=== PATIENT | female | born 1945 | race Caucasian/White ===

== ENCOUNTER 2024-10-17 08:15 | Emergency (ER) | payer MEDICARE, SELFPAY ==
--- NOTE | ~2024-10-17 | CT_ITS ---
Non-contrast Head CT History: Head injury Technique: Axial non-contrast imaging of the brain was performed. Dose reduction technique was used on this scan by utilizing automated exposure control and iterative reconstruction technique. The dose -length product (DLP) was 605.33 mGy-cm. Findings: There is no evidence of intracranial hemorrhage, mass lesion, or acute infarct. Brain par enchyma appears normal. The ventricles and subarachnoid spaces are normal in size. The calvarium ap pears normal. The visualized paranasal sinuses and mastoid air cells are clear. Impression: No significant abnormality seen. Reviewed, dictated and finalized at [facility]. EL WRITER Impression: No significant abnormality seen.
--- NOTE | ~2024-10-17 | XR_ITS ---
EXAMINATION: XR femur RT min 2V DATE: 10/17/2024 09:58 INDICATION: Right lower limb injury and pain. TECHNIQUE: 2 views of right femur on 4 radiographs were obtained. COMPARISON: None. FINDINGS: Alignment is normal. No fracture. There is mild right knee osteoarthritis. Right hip joint space is normal. No knee joint effusion. IMPRESSION: 1. Mild right knee osteoarthritis. Reviewed, dictated and finalized at location A. T PATHOLOGIST
--- NOTE | ~2024-10-17 | CT_ITS ---
EXAMINATION: CT cervical spine wo con DATE: 10/17/2024 09:49 INDICATION: Head injury. TECHNIQUE: Computed tomography (CT) of the cervical spine was performed without intravenous contrast. Automated exposure control and iterative reconstruction technique were employed. The dose-length pro duct was 115.96 mGy-cm. COMPARISON: None FINDINGS: There is mild scarring at the lung apices. There is 6 degrees levocurvature of cervical spi ne. Vertebral body heights are normal. There is mildly decreased disc height at C4-C5 and moderately decreased disc height at C5-C6. The following disc levels are specifically discussed: C2-C3: There is no uncovertebral joint osteoarthritis. There is mild bilateral facet joint osteoarthr itis. There is no neural foraminal stenosis. There is no central canal stenosis. C3-C4: There is no uncovertebral joint osteoarthritis. There is severe right and moderate left facet joint osteoarthritis. There is mild right neural foraminal stenosis. There is no central canal stenos is. C4-C5: There is mild bilateral uncovertebral joint osteoarthritis. There is severe right and moderate left facet joint osteoarthritis. There is mild bilateral neural foraminal stenosis. There is no cent ral canal stenosis. C5-C6: There is severe bilateral uncovertebral joint osteoarthritis. There is moderate bilateral face t joint osteoarthritis. There is mild bilateral neural foraminal stenosis. There is moderate central canal stenosis. C6-C7: There is mild bilateral uncovertebral joint osteoarthritis. There is severe bilateral facet martha int osteoarthritis. There is mild right neural foraminal stenosis. There is no central canal stenosis . C7-T1: There is no uncovertebral joint osteoarthritis. There is severe right and moderate left facet joint osteoarthritis. There is mild right neural foraminal stenosis. There is no central canal stenos is. IMPRESSION: 1. No fracture. 2. Moderate cervical spondylosis. Reviewed, dictated and finalized at location A. RACTIVE MEDIA MARKETING DIRECTOR
--- NOTE | ~2024-10-17 | CT_ITS ---
EXAMINATION:CT diagnostic chest wo con DATE: 10/17/2024 09:49 INDICATION: Right anterior lateral chest wall pain. Fall. TECHNIQUE: Computed tomography (CT) of the chest was performed without intravenous contrast. Automate d exposure control and iterative reconstruction technique were employed. The dose-length product (DLP ) was 139.86 mGy-cm. COMPARISON: None. FINDINGS: There is mild scarring at the lung apices. There is mild scarring in paraspinal right lower lobe. There is a cluster of tree-in-bud opacities in right lower lobe, likely inflammation/infection . There is mild bronchiectasis bilaterally with a lower lung predominance. There is mild atelectasis bilaterally. Calcified left lung nodules are consistent with old granulomatous disease. No pleural ef fusion. The heart size is normal. No pericardial effusion. There is a 7 mm cyst in the liver. There i s a 3 mm stone in left kidney. There are peripelvic cysts in left kidney. 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 Thoracic dextroscoliosis is noted. There is severe thora cic spondylosis. There is a hemangioma in the sternum. There is a fracture of right fourth rib. IMPRESSION: 1. Right fourth rib fracture. 2. Cluster of tree-in-bud opacities in right lung lower lobe, likely inflammation/infection. Reviewed, dictated and finalized at location A. ECTOR TUBES IMPRESSION: 1. Right fourth rib fracture. 2. Cluster of tree-in-bud opacities in right lung lower lobe, likely inflammati on/infection.
[2024-10-17 08:22] VITALS: BP 155/89; PULSE 68; RESP 14; TEMP 36.8; O2SAT 96
--- NOTE | 2024-10-17 09:35 | ED_ITS ---
HPI - Fall General Chief Complaint: Fall Stated Complaint: fell a few days ago pain to head and right side Time Seen by Provider: 10/17/24 09:04 Source: patient Mode of arrival: ambulatory Limitations: no limitations History of Present Illness HPI Narrative: Patient is a 78-year-old female who presents the ED with report of a fall. Patient reports she tripped and fell a few days ago while working in the yard. She did hit her head on the concrete. Denied LOC. Denied prodromal symptoms prior to the fall. She also complains of pain to her right anterior chest, right breast, right lower ribs. Denies abdominal pain. Denies shortness of breath. Also reports having pain and bruising to her right lateral thigh. Is able to ambulate. Is on any blood thinners. Denies dizziness, lightheadedness, vision changes, focal numbness or weakness. Related Data Home Medications Medication Instructions Recorded Confirmed atorvastatin 10 mg tablet 10 mg PO DAILY 09/11/24 pantoprazole 40 mg tablet,delayed 40 mg PO QAM 09/11/24 release Allergies Allergy/AdvReac Type Severity Reaction Status Date / Time No Known Allergies Allergy Verified 10/17/24 08:16 Review of Systems Review of Systems: All systems reviewed & are unremarkable except as noted in HPI. All systems reviewed & are unremarkable except as noted in HPI and below PMFSH Social History Social History Smoking status: Never smoker Alcohol intake: never Substance use: never Substance use type: does not use Do You Feel Safe in your Home?: Yes Lack of Transportation: No Lack of Food: Never True Current Housing: I Do Not Have Housing Concerned About Future Housing: No Difficulty Paying Gas/Electric Bills: No Difficulty Paying for Meds: No Currently Unemployed: No Education: High School Diploma/GED Difficulty w/ Childcare or Family Care: Decline to Answer Exam Narrative: GENERAL: Elderly but well appearing, well-nourished, non-toxic, in no acute distress. HEAD: Normocephalic. Small contusion to R frontal region. RESPIRATORY: Airway patent, respirations nonlabored. Clear to auscultation bilaterally, no rales, rhonchi, wheezing. CARDIOVASCULAR: Regular rate and rhythm without murmurs, rubs, or gallops. ABDOMINAL: Soft, no significant tenderness throughout abdomen. Nondistended. Normoactive BS. MUSCULOSKELETAL: Moves all extremities. No gross deformities. No tenderness throughout cervical, thoracic, lumbar midline spine. Tenderness to palpation over right anterior lateral chest wall/mid to lower rib cage. No splinting. Ecchymosis present throughout lateral distal R thigh with focal tenderness to palpation. No significant tenderness over right hip joint. SKIN: Warm, dry, normal color. NEURO: A&O X3. Speech clear. Cranial nerves II-XII grossly intact. Steady gait. No ataxic movements. PSYCHIATRIC: Appropriate mood and affect. Normal interaction. Course Vital Signs Vital signs: Vital Signs Temperature 98.2 F 10/17/24 08:22 Pulse Rate 68 10/17/24 08:22 Respiratory Rate 14 10/17/24 08:22 Blood Pressure 155/89 H 10/17/24 08:22 Pulse Oximetry 96 10/17/24 08:22 Temperature 98.2 F 10/17/24 08:22 Pulse Rate 70 10/17/24 10:44 Respiratory Rate 16 10/17/24 10:44 Blood Pressure 99/77 L 10/17/24 10:44 Pulse Oximetry 98 10/17/24 10:44 MDM - Fall MDM Narrative Medical decision making narrative: Patient presented to ED a few days status post ground level mechanical fall. Vital signs stable upon arrival. Patient neurologically intact. Head injury, no LOC. Imaging of brain and cervical spine negative for traumatic findings. X- ray of femur negative. Shows osteoarthritis of knee. CT of chest was obtained and showing single right-sided rib fracture. Consistent with exam and injury. No pneumothorax. Nonspecific inflammation in right lower lung zone. Patient denies any respiratory complaints, denies shortness of breath, cough, fevers. Oxygen is stable on room air. Feel she is safe for discharge home with pain control. Given instructions on incentive spirometer use. Will discharge with lidocaine patches, tramadol for home use. Advised to have close follow-up with PCP for further evaluation. Given strict return precautions. She agrees with plan. Discharged in stable condition. Medical Records Attestation: I reviewed the patient's medical records. Imaging Data Attestation: I personally reviewed and interpreted this imaging study as follows: Radiologist's impression: ITS Impressions Head CT 10/17/24 09:49 Impression: No significant abnormality seen. Cervical Spine CT 10/17/24 09:57 IMPRESSION: 1. No fracture. 2. Moderate cervical spondylosis. Chest CT 10/17/24 10:00 IMPRESSION: 1. Right fourth rib fracture. 2. Cluster of tree-in-bud opacities in right lung lower lobe, likely inflammation/infection. Femur X-Ray 10/17/24 10:04 IMPRESSION: 1. Mild right knee osteoarthritis. Discharge Plan Discharge Clinical Impression: Fall from ground level Closed head injury Qualifiers: Encounter type: initial encounter Qualified Code(s): S09.90XA - Unspecified injury of head, initial encounter Right rib fracture Qualifiers: Encounter type: initial encounter Rib fracture type: single rib Fracture type: closed Qualified Code(s): S22.31XA - Fracture of one rib, right side, initial encounter for closed fracture Patient Disposition: Home, Self-Care Condition: Stable Instructions: Antibiotic Form, Rib Fracture (ED), Head Injury (ED), Contusion in Adults (ED) Additional Instructions: Utilize incentive spirometer several times throughout the day to encourage deep breathing. Continue Tylenol as needed for pain. Utilize Tramadol as needed for more severe pain. You may use ice/heat, lidocaine patches to area of pain. Follow-up with your primary care doctor for further evaluation. Return to the ED if you experience worsening or severe pain, recurrent injury, numbness, shortness of breath, difficulty breathing, severe dizziness, unable to keep down food or drink, or any other symptoms of concern. Prescriptions: New lidocaine 5 % adhesive patch,medicated 1 patch topical DAILY Qty: 15 0RF Rx Instructions: leave on most painful area for up to 12 hrs tramadol 50 mg tablet 25 mg PO Q6H PRN (Reason: pain) Qty: 10 0RF No Action atorvastatin 10 mg tablet 10 mg PO DAILY pantoprazole 40 mg tablet,delayed release (DR/EC) 40 mg PO QAM Follow-up/Referrals: Zachariah,MD Toni [Primary Care Provider] - Time of Disposition: 10:53
[2024-10-17 10:44] VITALS: BP 99/77; PULSE 70; RESP 16; O2SAT 98
== END 2024-10-17 11:03 | disposition home or self-care (01) ==
PROVIDERS: Emergency Provider Physician Assistant; PCP Internal Medicine
DX: S09.90XA Unspecified injury of head, initial encounter (principal); S22.31XA Fracture of one rib, right side, initial encounter for closed fracture; W19.XXXA Unspecified fall, initial encounter
CPT/HCPCS: 70450; 71250; 72125; 73552; 99284

== ENCOUNTER 2025-02-24 14:48 | Emergency (ER) | payer MEDICARE, SELFPAY ==
--- NOTE | ~2025-02-24 | XR_ITS ---
XR hand RT min 3V Ordering provider: Fanta Morales History: . fall . Comparison: None. FINDINGS: BONES: No acute fracture or dislocation. JOINT SPACES: Narrowing of the proximal and distal interphalangeal joints. SOFT TISSUES: Normal. IMPRESSION: No acute osseous abnormality right hand. Reviewed, dictated and finalized at location A.
--- NOTE | ~2025-02-24 | XR_ITS ---
XR hand LT min 3V Ordering provider: Fanta Morales PA-C History: . fall . Comparison: None. FINDINGS: BONES: No acute fracture or dislocation. JOINT SPACES: Narrowing of the proximal and distal interphalangeal joints. Narrowing of the scaphotra pezial and first carpometacarpal joints. SOFT TISSUES: Unremarkable. IMPRESSION: No acute osseous abnormality left hand. Polyarticular osteoarthritic changes. Reviewed, dictated and finalized at location A.
--- NOTE | ~2025-02-24 | XR_ITS ---
XR hip BI 2V w AP pelvis Ordering provider: Fanta Morales History: . fall . Comparison: October 17, 2024 FINDINGS: BONES: No acute fracture or dislocation. HIP JOINT SPACES: Normal. SACROILIAC JOINT SPACES/LUMBAR SPINE: The sacroiliac joint spaces are normal. Mild degenerative loya es of the visualized lower lumbar spine. PUBIC SYMPHYSIS: Normal. SOFT TISSUES: Normal. IMPRESSION: No acute osseous abnormality of the bilateral hips and pelvis. Reviewed, dictated and finalized at location A.
--- NOTE | ~2025-02-24 | XR_ITS ---
XR ankle LT min 3V Ordering provider: Fanta Morales PA-C History: . fall . Comparison: None. FINDINGS: BONES: No acute fracture or dislocation. JOINT SPACES: The ankle mortise is normal. SOFT TISSUES: Normal. Calcaneus spur. IMPRESSION: No acute osseous abnormality left ankle. Reviewed, dictated and finalized at location A.
--- NOTE | ~2025-02-24 | CT_ITS ---
CT diagnostic chest wo con Ordering provider: Fanta Morales PA-C History: 79 years Female .. left rib pain . Comparison: None. Technique: CT chest without IV contrast. Radiation reduction technique utilized.The dose-length produ ct was 125.1 mGy-cm. FINDINGS: VISUALIZED THORACIC INLET: Normal. MEDIASTINUM: Aorta/coronary arteries: Mild atheromatous disease. Heart/other: The heart is not enlarged. Trace of pericardial effusion. Lymph nodes: No mediastinal or hilar adenopathy. Precarinal lymph nodes are seen within the right ruchi sures 1 cm. LUNGS: No pulmonary nodules or masses. No infiltrates or effusions. No pneumothorax. Groundglass appe arance in the lung bases which may indicate atelectasis versus pneumonia. Atelectatic changes also se en in the lingula. VISUALIZED UPPER ABDOMEN: Left hydronephrotic changes Otherwise, the visualized upper abdomen is norm al. MUSCULOSKELETAL: Soft tissues: The superficial soft tissues are normal. Bones: Age appropriate degenerative changes of the spine. Sclerotic areas seen bilaterally in the fourth and fifth ribs and the right 6th rib Most likely due t o old fractures. Clinical correlation advised. Vertebroplasty seen in L2. Cystic changes in the manub rium. Sclerotic area in the lower sternum. IMPRESSION: 1. No acute cardiopulmonary pathology. 2. Groundglass appearance in the left and right lung bases which may indicate atelectasis versus pne umonia. 3. Precarinal lymph nodes with the largest measures 1 cm. 4. Left hydronephrotic changes. 5. Trace pericardial effusion. 6. Multiple sclerotic change in the ribs bilaterally most likely due to old fractures. Reviewed, dictated and finalized at location A. IMPRESSION: 1. No acute cardiopulmonary pathology. 2. Groundglass appearance in the left and right lung bases which may indicate atelectasis versus pneumonia. 3. Precarinal lymph nodes with the largest measures 1 cm. 4. Left hydronephrotic changes. 5. Trace pericardial effusion. 6. Multiple sclerotic change in the ribs bilaterally most likely due to old fr actures.
--- NOTE | ~2025-02-24 | XR_ITS ---
XR knee RT 3V Ordering provider: Fanta Morales History: . fall . Comparison: None. FINDINGS: BONES: No acute fracture or dislocation. JOINT SPACES: Normal. SOFT TISSUES: Normal. IMPRESSION: No acute osseous abnormality right knee. Reviewed, dictated and finalized at location A.
--- NOTE | ~2025-02-24 | XR_ITS ---
XR ribs LT 2V w CXR 2V Ordering provider: Fanta Morales History: . fall . Comparison: None. FINDINGS: BONES: Fracture of the left sixth rib. Degenerative changes of the spine. Vertebroplasty seen in the lumbar area. Dextroscoliosis. MEDIASTINUM: The cardiac silhouette is not enlarged. LUNGS: No infiltrates, effusions or pneumothorax. Emphysematous changes. OTHER: No free air under the diaphragm. IMPRESSION: 1. Fracture of the left sixth rib. 2. No acute cardiopulmonary findings. Reviewed, dictated and finalized at location A.
--- NOTE | ~2025-02-24 | CT_ITS ---
EXAMINATION: 1. CT facial & cervical spine wo DATE: 02/24/2025 15:52 INDICATION: Fall TECHNIQUE: 1. Computed tomography (CT) of the maxillofacial region and of the cervical spine were performed with out intravenous contrast. Sagittal and coronal reconstructions of both regions were obtained. Automat ed exposure control and iterative reconstruction technique were employed. The dose-length product was 115.96 mGy-cm. COMPARISON: Cervical spine CT dated 10/17/2024 FINDINGS: Maxillofacial CT: Soft tissue swelling with mild fat stranding overlying the left anterior mandible likely representing a post traumatic contusion. No maxillofacial fractures. Specifically the nasal bones, zygomatic arch es, mandible and lee of the orbits and paranasal sinuses are all intact. Nasal septum is midline wi th no fracture. The temporomandibular joints in normal alignment with mild to moderate left-sided and moderate right-sided osteoarthritis. Bone island at the right mandibular condyle. Orbits are normal. Mild mucosal thickening the right maxillary sinus. Mastoid air cells and middle ear cavities are marisol ar. Cervical spine CT: Unchanged mild cervicothoracic levocurvature. Sagittal alignment is normal. Vertebral body heights ar e normal. Mild disc height loss and mild uncovertebral osteoarthritis at C4-C5 and moderate disc heig ht loss and severe uncovertebral osteoarthritis at C5-C6. Right paracentral disc protrusion at C5-C6 resulting in moderate central canal stenosis at this level. No other central canal stenosis. Mild to moderate left-sided and moderate to severe right-sided cervical facet osteoarthritis. There is mild n eural from stenosis at a few levels in the left and right sides of the cervical spine. See prior repo rt for level by level analysis. Cervical soft tissues are unremarkable. Mild emphysema with mild biap ical pleural-parenchymal scarring. IMPRESSION: 1. No maxillofacial fractures. 2. Moderate cervical spondylosis. No acute osseous abnormality. Reviewed, dictated and finalized at location A.
--- NOTE | ~2025-02-24 | CT_ITS ---
History: Fall PROCEDURE: CT head without contrast. COMPARISON: 10/17/2024 TECHNIQUE: Axial imaging of the head performed from the skull base to the vertex without IV contrast. Sagittal a nd coronal reformations obtained. DLP: 605 mGy-cm FINDINGS: The ventricles are normal in size, shape and position. There is no mass, mass effect or midline shift. There is no abnormal extra-axial fluid collection or intracranial hemorrhage. Visualized paranasal sinuses are clear. The mastoid air cells are well aerated. No acute displaced fractures within the overlying cranium. Impression: No acute intracranial hemorrhage or suspicious mass effect. Reviewed, dictated and finalized at location A. Impression: No acute intracranial hemorrhage or suspicious mass effect.
[2025-02-24 14:52] VITALS: BP 170/73; PULSE 94; RESP 16; TEMP 36.4; O2SAT 99
--- NOTE | 2025-02-24 15:19 | ED_ITS ---
HPI - Fall General Chief Complaint: Fall <Fanta Morales PA-C - Last Filed: 02/24/25 15:21> Stated Complaint: Fall-hit left side, diff taking deep breaths <Fanta Morales PA-C - Last Filed: 02/24/25 15:21> Time Seen by Provider: 02/24/25 17:41 <Fanta Morales PA-C - Last Filed: 02/24/25 15:21> Focused HPI: 79-year-old female presents emergency department after ground level fall that occurred this morning. Patient states she was wearing her house slippers when she tripped on the lip of her sidewalk walking to her neighbor's house and fell. She landed on the left side of her face, left ribs, hips and hands. She is reporting pain and bruising to the left side of her chin, pain to the left ribs that is worse with deep inspiration and movement, pain to bilateral dorsum of hands with ecchymosis, pain to bilateral posterior hips, pain to the left knee and ankle. She has presenting with small abrasion to the palm of her left hand, last Tdap unknown. Bleeding is controlled. She is not anticoagulated. GENERAL: Well-appearing, well-nourished, and in no acute distress. HEAD: Normocephalic, atraumatic. ENT: Ecchymosis to the left chin with tenderness, no intraoral lacerations or abrasions, no dental injury BACK: No midline thoracolumbar spinous tenderness, crepitus, step-offs or deformities CHEST: Clear to auscultation. ?No respiratory distress. Tenderness to the left anterior lateral chest wall beneath the left breast with no overlying skin changes EXT: Ecchymosis and tenderness to the dorsum of bilateral hands with full range of motion of hand, radial, median and ulnar nerves intact, radial pulse 2 +, sensation intact throughout. No tenderness remainder of wrist or remainder upper extremities. Tenderness to bilateral posterior hips overlying the piriformis with no overlying skin changes or deformity, full range of motion of hips. Mild tenderness to the left hip and left ankle with no obvious deformity. Extremities are pink, warm and dry. HEART: Regular rate and rhythm.? NEURO: ?Alert and oriented x3. Patient screened in triage and initial orders placed.? ?Additional care and disposition to be based upon?diagnostic testing and treatment. <Fanta Morales PA-C - Last Filed: 02/24/25 15:21> History of Present Illness HPI Narrative: agree with above <Teagan Childress MD - Last Filed: 02/24/25 21:21> Related Data Home Medications: Home Medications ?Medication ?Instructions ?Recorded ?Confirmed ?Last Taken ?Type atorvastatin 10 mg tablet 10 mg PO DAILY 09/11/24 Unknown History pantoprazole 40 mg tablet,delayed 40 mg PO QAM 09/11/24 Unknown History release <Fanta Morales PA-C - Last Filed: 02/24/25 15:21> Allergies/Adverse Reactions: Allergies Allergy/AdvReac Type Severity Reaction Status Date / Time No Known Allergies Allergy Verified 02/24/25 14:49 <Fanta Morales PA-C - Last Filed: 02/24/25 15:21> Review of Systems Review of Systems: per hpi <Teagan Childress MD - Last Filed: 02/24/25 21:21> [facility] Social History Social History: Social History Smoking status: Never smoker Alcohol intake: never Substance use: never Substance use type: does not use Do You Feel Safe in your Home?: Yes Lack of Transportation: No Lack of Food: Never True Current Housing: I Do Not Have Housing Concerned About Future Housing: No Difficulty Paying Gas/Electric Bills: No Difficulty Paying for Meds: No Currently Unemployed: No Education: High School Diploma/GED Difficulty w/ Childcare or Family Care: Decline to Answer <Fanta Morales PA-C - Last Filed: 02/24/25 15:21> Exam Narrative: EXAMINATION OF ORGAN SYSTEMS/BODY AREAS: Constitutional: Vital signs per nursing GENERAL:[No acute distress, non-toxic appearing.] HEAD: Bruise left chin EYES: EOMI, conjunctiva normal ENT: Hearing grossly intact LUNGS: Nonlabored breathing. No chest wall tenderness HEART: [Regular rate and rhythm] ABD: [Soft], [nontender to palpation] EXT: Normal range of motion; bruising bilateral knees, left hand, with some tenderness SKIN: Bruising and abrasions to knees, hands NEURO: [Alert and oriented x 3. No gross focal sensory or strength deficits.] Speaking with clear speech, ambulating normal steady gait PSYCH: Normal affect <Teagan Childress MD - Last Filed: 02/24/25 21:21> Course Vital Signs Vital signs: Vital Signs Temperature 97.6 F 02/24/25 14:52 Pulse Rate 94 02/24/25 14:52 Respiratory Rate 16 02/24/25 14:52 Blood Pressure 170/73 H 02/24/25 14:52 Pulse Oximetry 99 02/24/25 14:52 Temperature 97.6 F 02/24/25 14:52 Pulse Rate 86 02/24/25 18:11 Respiratory Rate 16 02/24/25 18:11 Blood Pressure 150/70 H 02/24/25 18:11 Pulse Oximetry 97 02/24/25 18:11 <Fanta Morales PA-C - Last Filed: 02/24/25 15:21> Vital Signs Temperature 97.6 F 02/24/25 14:52 Pulse Rate 94 02/24/25 14:52 Respiratory Rate 16 02/24/25 14:52 Blood Pressure 170/73 H 02/24/25 14:52 Pulse Oximetry 99 02/24/25 14:52 Temperature 97.6 F 02/24/25 14:52 Pulse Rate 86 02/24/25 18:11 Respiratory Rate 16 02/24/25 18:11 Blood Pressure 150/70 H 02/24/25 18:11 Pulse Oximetry 97 02/24/25 18:11 <Teagan Childress MD - Last Filed: 02/24/25 21:21> MDM - Fall MDM Narrative Medical decision making narrative: Patient presents here after mechanical fall after she tripped, she does have bruising everywhere especially to her, telling me, with small abrasions, none of which appear to be he pain or requiring sutures, everything is cleaned off well, tetanus is updated, Toradol given for pain, imaging obtained to rule out fractures. No obvious acute fracture seen but given her pain to her left hand I did advise getting and using thumb spica/wrist splint when she leaves here following up with a doctor for repeat x-rays if she continues to have pain. Patient agreeable to this plan. Stable for discharge with return precautions <Teagan Childress MD - Last Filed: 02/24/25 21:21> Discharge Plan Discharge Clinical Impression: Fall, Bruising <Fanta Morales PA-C - Last Filed: 02/24/25 15:21> Patient Disposition: Home <Fanta Morales PA-C - Last Filed: 02/24/25 15:21> Condition: Stable <Fanta Morales PA-C - Last Filed: 02/24/25 15:21> Instructions: Contusion in Adults (ED), Abrasion (ED) <Fanta Morales PA-C - Last Filed: 02/24/25 15:21> Additional Instructions: Please follow up with your doctor; you can always return for any further issues. <Fanta Morales PA-C - Last Filed: 02/24/25 15:21> Patient Language: Urdu <Fanta Morales PA-C - Last Filed: 02/24/25 15:21> Prescriptions: New oxycodone 5 mg tablet 5 mg PO Q8H PRN (Reason: pain) Qty: 7 0RF No Action atorvastatin 10 mg tablet 10 mg PO DAILY pantoprazole 40 mg tablet,delayed release (DR/EC) 40 mg PO QAM lidocaine 5 % adhesive patch,medicated 1 patch topical DAILY Qty: 15 0RF Rx Instructions: leave on most painful area for up to 12 hrs tramadol 50 mg tablet 25 mg PO Q6H PRN (Reason: pain) Qty: 10 0RF <Fanta Morales PA-C - Last Filed: 02/24/25 15:21> Follow-up/Referrals: Zachariah,MD Toni [Primary Care Provider] - <Fanta Morales PA-C - Last Filed: 02/24/25 15:21>
--- OUTSIDE RECORDS SUMMARY | 2025-02-24 15:57 | XMS_ITS | CONTINUITY OF CARE DOCUMENT ---
Author Name adalgisa jaiiker Address Unknown Organization [facility] Address [address] [place] [address] Phone [phone] Care Team Providers Care Tire Debeader Name Role Phone Lawrence Venegas MD Unavailable [phone] LORI JACKSON MD Unavailable LORI JACKSON MD Unavailable PROBLEMS Condition Status Date Provider Notes Chest pain active Jeanne Rodriguez INSURANCE PROVIDERS Payer name Policy type / Coverage type [place] red libertarian ID [facility] MEDICARE ADVANTAGE (PPO) Other [id number] HISTORY OF PROCEDURES Procedure Date Procedure Name Provider Procedure Notes S tatus Mobile Cardiac Telem etry - Tech Lawrence Venegas MD completed Mobile Cardiac Telem etry - Prof Lawrence Venegas MD completed Cardiolite, 2 units Lawrence Venegas MD completed SPECT Images Lawrence Venegas MD comple cathy Stress EKG Lawrence Venegas MD complete d
--- OUTSIDE RECORDS SUMMARY | 2025-02-24 15:57 | XMS_ITS | Clinical Summary ---
Author Organization [facility] Address [address] [place] [id number] Care Team Providers Care Chronometer Adjuster Name Role Phone Unavailable Primary Care Provider Unavailabl e Social History Tobacco Use Types Packs/Day Years Used Date Smoking Tobacco: Never Assessed Comments Unknown Sex and Gender Information Value Date Recorded Sex Assigned at Not on file Legal Sex Female 7:31 PM CDT Gender Identity Not on file Sexual Orientation Not on file Last Filed Vital Signs Vital Sign Reading Time Taken Comments Blood Pressure 126/80 07/07/2014 8:56 AM CDT Pulse - - Temperature - - Respiratory Rate - - Oxygen Saturation - - Inhaled Oxygen Concentration - - Weight 64.9 kg (143 lb) 07/07/2014 8:56 AM CDT Height 162.6 cm (5' 4 ) 03/19/2013 9:59 AM CDT Body Mass Index 24.55 03/19/2013 9:59 AM CDT Plan of Treatment Health Maintenance Due Date Last Done Comments Hepatitis C 1964 DTaP, Tdap and Td Vaccines ( 1 - Tdap) 1965 Zoster Vaccines (1 of 2) 1996 Dexa Scan (General) 2011 Pneumococcal Vaccine: 50+ Ye ars (1 of 1 - PCV) 2011 RSV Immunization or 60+ Years (1 - 1-dose 75+ series) 2021 COVID-19 Vaccine ( - 2023-2 5 season) 2024 Meningococcal B Vaccine Aged Out No l onger eligible based on patient's age to complete this topic Meningococcal Vaccine Aged Out No leanne dejah eligible based on patient's age to complete this topic RSV Immunizations Under 20 Months Aged Out No longer eligible based on patient's age to complete this topic
--- OUTSIDE RECORDS SUMMARY | 2025-02-24 15:57 | XMS_ITS | Continuity of Care Document ---
Author Organization [facility] Address [address] [place] [address] [address] [place] [address] Phone Care Team Providers Care Sql Manager Name Role Phone Aj Guzman Unavailable Unavailable Procedures Procedure Date Office/outpatient Visit, Est Eye Exam Established Pt Eye Exam & Treatment Refraction Office/outpatient Visit, New Advance Directives Directive Yes / No Effective Date File Name No Information Encounters Encounter Description Practice Location Reason(s) For Visit Diagnoses Date Provider Providers Copied on Encounter Office/outpat ient Visit, Est [facility], [address] [place] [address] [address], [place], [place], [id number], [place] tel:[phone] [facility] No Information [address], [place], [place], [facility], . tel:[phone] [facility], [id number] [place] [address] [address], [place], [place], [id number], [place] tel:[phone] [facility] No Information [address] [place] , [address], [place], [place], [facility], [place]. tel:[phone] [facility], [address], [place], [place], [id number], tel:[phone] [facility] No Information [address] [facility] , [address], [place], [address], [place]. tel:[phone] Office/outpat ient Visit, [facility], [address], [place], [place], [id number], [place] tel:[phone] [facility] No Information [address] [facility] , [address], [place], [address], [place]. tel:[phone] Family History Family Member Type Diagnosis Age At Onset No Information Payers Payer name Insurance type Covered alliance party ID Authoriza tion(s) No Information Social History Type Description Quantity Date Captured Comments Sex Female Smoking Status No Information Chief Complaint And Reason For Visit No Information Reason For Referral Reason For Referral No Information History Of Present Illness Encounter Date Complaint History Of Prese nt Illness No Information Functional Status Date Functional Assessmen t No Information Instructions Date Instruction Additional Infor mation No Information Assessments Type Assessment Date No Information Patient Care Teams Name Effective Dates (start - stop) Status Members No Information
--- OUTSIDE RECORDS SUMMARY | 2025-02-24 15:57 | XMS_ITS | Data Portability ---
Author Organization [facility] Address [address] [place] [address] Care Team Providers Care Drier Name Role Phone LORI SONI Primary Care Provider [phone] RY KHALIL Neurosurgeon Assessment Encounter Date Assessment Date Assessment LastModified by Organization Details LastModified Time 08/19/2024 08/19/2024 EKG shows a normal sinus rhythm I do not appreciate any acute changes. We will obtain blood work she will push fluids orthostatic vital signs reviewed she will follow up in a couple of weeks if symptomatology changes she will let us know. We will monitor blood pressure [email or web address] Not available 08/21/2024 23:52:09 09/02/2024 09/02/2024 Used to be positional now she states that she can not be sure Holter monitor carotid duplex echocardiogram MRI brain flu shot healthy lifestyle care instructions follow up after testing 81 mg aspirin daily [email or web address] Not available 09/14/2024 11:56:47 09/10/2024 09/10/2024 all questions answered immunizations and screenings ordered where appropriate and patient agreeable all questions answered follow up with her regular appointment time [email or web address] Not available 09/10/2024 22:10:55 12/09/2024 12/09/2024 physical therapy low back pain GERD pantoprazole dyslipidemia atorvastatin she refuses to follow up with echo and Holter she will follow up in 3 months [email or web address] Not available 12/09/2024 21:24:23 Plan of Treatment Reminders Order Date Submit Date Provider Last Modified By Organization Details Last Modified Time Details Appointments ANY 15 2024 02:00P Keyona Soni MD Not available Not available Not available Lab CBC w/ auto diff 2023 024 BR[facility]ON [facility], [address], [place], [address], 08/20/2024 06:18:09 CMP, serum or plasma 2023 024 KRUNAL [facility], [address], [place], [address], 08/20/2024 06:18:04 magnesium , serum or plasma 2023 024 BR[facility]ON [facility], [address], [place], [address], 08/20/2024 06:18:06 urinalysi s, complete 2023 024 BRIGHTON [facility], [address], [place], [address], 08/20/2024 06:18:08 Referral physical therapist referral 2024 025 [facility], [address], [place], [address], 12/11/2024 20:27:47 Procedures colonosco py procedure (PROC) 2023 024 [facility], [address], [address], [place], [address], 01/12/2025 15:11:10 Surgeries None recorded. Imaging MAMMO, screening , bilateral 2023 024 [facility] (Imaging), [address], [place], [address], 01/13/2025 11:43:23 holter monitor - 1wk holter 2023 024 [facility], [address], [address], [place], [address], 01/28/2025 16:21:02 US, duplex, carotid artery 2023 024 [facility] (One Call Scheduling), [address] [place], [address], 09/09/2024 15:36:59 US, echocardi ogram 2023 024 [facility] (Cardiology & Emg), [address], [place], [address], 12/17/2024 11:25:46 MRI, brain, w/o contrast 2023 024 [facility] (One Call Scheduling), [address] [place], [address], 09/09/2024 10:27:56 electroca rdiogram 2023 In-Office Order, Internal Use Only DO Not Attach Compendium DO Not Attach Compendium, Do Not Delete/merge, [id number] 08/19/2024 12:36:35 Medication Orders Prolia 60 mg/mL subcutane ous syringe 2023 [email or web address] [id number], [address], [place], [place], [id number], 09/16/2024 10:21:33 Patient TargetsNo targets recorded. Patient Instructions Encounter Date Encounter Id Patient Instructions Last Modified By Organization Details Last Modified Time 09/02/2024 [id number] A healthy lifestyle: care instructions [email or web address] Not available 09/02/2024 15:32:49 09/10/2024 [id number] Medicare Well[employer] s Preventive Checklist [email or web address] Not available 09/10/2024 15:31:33 Reason for Referral Physical Therapist Referral for Low back pain Referring Physician: Lori Soni, Internal Medicine, Encounter Date: 12/09/2024 Results Created Date Observation Date Name Description Value Unit Range Abnormal Flag Note LastModifiedBy Organization Detail LastModifiedTime 08/19/2008/20/2024 COMP. METAB OLIC PANEL (14) glucose 83 mg/dL 70-99 Not Available [facility] ([facility]) [address] [place], [address], 08/20/2024 06:18:03 08/19/20 24 08/20/2024 COMP. METAB OLIC PANEL (14) BUN 15 mg/dL 8-27 Not Available [facility] ([facility]) [address] [place], [address], 08/20/2024 06:18:03 08/19/2008/20/2024 COMP. METAB OLIC PANEL (14) creatinine 0.76 mg/dL 0.57-1 .00 Not Available [facility] ([facility]) [address] [place], [address], 08/20/2024 06:18:03 08/19/20 24 08/20/2024 COMP. METAB OLIC PANEL (14) eGFR 81 mL/mi n/1.7 3 >59 Not Available [facility] ([facility]) [address] [place], [address], 08/20/2024 06:18:03 08/19/20 24 08/20/2024 COMP. METAB OLIC PANEL (14) BUN/creatini ne ratio 20 12-28 Not Available [facility] ([facility]) [address] [place], [address], 08/20/2024 06:18:03 08/19/20 24 08/20/2024 COMP. METAB OLIC PANEL (14) sodium 142 mmol/ L 134-14 4 Not Available [facility] ([facility]) [address] [place], [address], 08/20/2024 06:18:03 08/19/20 24 08/20/2024 COMP. METAB OLIC PANEL (14) potassium 4.9 mmol/ L 3.5-5. 2 Not Available [facility] ([facility]) [address], [place], [address], 08/20/2024 06:18:03 08/19/2008/20/2024 COMP. METAB OLIC PANEL (14) chloride 104 mmol/ L 96-106 Not Available [facility] ([facility]) [address] [place], [address], 08/20/2024 06:18:03 08/19/2008/20/2024 COMP. METAB OLIC PANEL (14) carbon dioxide, total 25 mmol/ L 20-29 Not Available [facility] ([facility] [address] [place], [address], 08/20/2024 06:18:03 08/19/20 24 08/20/2024 COMP. METAB OLIC PANEL (14) calcium 9.2 mg/dL 8.7-10 .3 Not Available [facility] ([facility]) [address] [facility], [place], [address], 08/20/2024 06:18:03 08/19/2008/20/2024 COMP. METAB OLIC PANEL (14) protein, total 6.4 g/dL 6.0-8. 5 Not Available [facility] ([facility]) [address] [place], [address], 08/20/2024 06:18:03 08/19/2008/20/2024 COMP. METAB OLIC PANEL (14) albumin 4.2 g/dL 3.8-4. 8 Not Available [facility] ([facility]) [address] [place], [address], 08/20/2024 06:18:03 08/19/2008/20/2024 COMP. METAB OLIC PANEL (14) globulin, total 2.2 g/dL 1.5-4. 5 Not Available [facility] ([place] [facility]) [address] [facility], [place], [address], 08/20/2024 06:18:03 08/19/2008/20/2024 COMP. METAB OLIC PANEL (14) bilirubin, total 0.4 mg/dL 0.0-1. 2 Not Available [facility] ([facility]) [address] [place], [address], 08/20/2024 06:18:03 08/19/2008/20/2024 COMP. METAB OLIC PANEL (14) alkaline phosphatase 56 IU/L 44-121 Not Available [facility]) [address] [place], [address], 08/20/2024 06:18:03 08/19/2008/20/2024 COMP. METAB OLIC PANEL (14) AST (SGOT) 21 IU/L 0-40 Not Available [facility] ([facility]) [address] [place], [address], 08/20/2024 06:18:03 08/19/2008/20/2024 COMP. METAB OLIC PANEL (14) ALT (SGPT) 11 IU/L 0-32 Not Available [facility] ([facility]) [address] [place], [address], 08/20/2024 06:18:03 08/19/2008/20/2024 MICRO SCOPI C EXAMI NATIO N WBC None seen /hpf 0-5 Not Available [facility] ([facility]) [address] [place], [address], 08/20/2024 06:18:06 08/19/2008/20/2024 MICRO SCOPI C EXAMI NATIO N RBC None seen /hpf 0-2 Not Available [facility] ([facility]) [address] [facility], [place], [address], 08/20/2024 06:18:06 08/19/2008/20/2024 MICRO SCOPI C EXAMI NATIO N epithelial cells (non renal) None seen /hpf 0-10 Not Available [facility] ([facility]) [address], [place], [address], 08/20/2024 06:18:06 08/19/2008/20/2024 MICRO SCOPI C EXAMI NATIO N casts None seen /lpf nonese en Not Available [facility] ([facility]) [address], [place], [address], 08/20/2024 06:18:06 08/19/2008/20/2024 MICRO SCOPI C EXAMI NATIO N bacteria None seen nonese en/few Not Available [facility] ([facility]) [address] [facility], [place], [address], 08/20/2024 06:18:06 08/19/2008/20/2024 MAGNE SIUM magnesium 2.2 mg/dL 1.6-2. 3 Not Available [facility] ([facility]) [address] [place], [address], 08/20/2024 06:18:06 08/19/2008/20/2024 URINA LYSIS , COMPL ETE specific gravity 1.010 1.005- 1.030 Not Available [facility] ([facility]) [address] [facility], [place], [address], 08/20/2024 06:18:08 08/19/2008/20/2024 URINA LYSIS , COMPL ETE pH 7.5 5.0-7. 5 Not Available [facility] ([facility]) [address] [place], [address], 08/20/2024 06:18:08 08/19/2008/20/2024 URINA LYSIS , COMPL ETE urine-color YELLOW yellow Not Available [facility] ([facility]) [address] [place], [address], 08/20/2024 06:18:08 08/19/2008/20/2024 URINA LYSIS , COMPL ETE appearance CLEAR clear Not Available [facility] ([facility]) [address], [place], [address], 08/20/2024 06:18:08 08/19/2008/20/2024 URINA LYSIS , COMPL ETE WBC esterase NEGATI VE negati ve Not Available [facility] ([facility]) [address] [facility], [place], [address], 08/20/2024 06:18:08 08/19/2008/20/2024 URINA LYSIS , COMPL ETE protein NEGATI VE negati ve/tra ce Not Available [facility] ([facility]) [address] [facility], [place], [address], 08/20/2024 06:18:08 08/19/2008/20/2024 URINA LYSIS , COMPL ETE glucose NEGATI VE negati ve Not Available [facility] ([facility]) [address] [facility], [place], [address], 08/20/2024 06:18:08 08/19/2008/20/2024 URINA LYSIS , COMPL ETE ketones NEGATI VE negati ve Not Available [facility] ([facility]) [address] [facility], [place], [address], 08/20/2024 06:18:08 08/19/2008/20/2024 URINA LYSIS , COMPL ETE occult blood NEGATI VE negati ve Not Available [facility] ([facility]) [address] [facility], [place], [address], 08/20/2024 06:18:08 08/19/2008/20/2024 URINA LYSIS , COMPL ETE bilirubin NEGATI VE negati ve Not Available [facility] ([facility]) [address], [place], [address], 08/20/2024 06:18:08 08/19/2008/20/2024 URINA LYSIS , COMPL ETE urobilinogen ,semi-qn 0.2 mg/dL 0.2-1. 0 Not Available [facility] ([facility]) [address], [place], [address], 08/20/2024 06:18:08 08/19/2008/20/2024 URINA LYSIS , COMPL ETE nitrite, urine NEGATI VE negati ve Not Available [facility] ([facility]) [address], [place], [address], 08/20/2024 06:18:08 08/19/2008/20/2024 URINA LYSIS , COMPL ETE microscopic examination COMMEN T Micro scopi c follo ws if indic ated. Not Available [facility] ([facility]) [address], [place], [address], 08/20/2024 06:18:08 08/19/2008/20/2024 URINA LYSIS , COMPL ETE microscopic examination SEE BELOW: Micro scopi c was indic ated and was perfo rmed. Not Available [facility] ([facility]) [address], [place], [address], 08/20/2024 06:18:08 08/19/2008/20/2024 CBC WITH DIFFE RENTI AL/PL ATELE T WBC 5.4 x10e3 /uL 3.4-10 .8 Not Available [facility] ([facility]) [address] [facility], [place], [address], 08/20/2024 06:18:09 08/19/2008/20/2024 CBC WITH DIFFE RENTI AL/PL ATELE T RBC 4.17 x10e6 /uL 3.77-5 .28 Not Available [facility] ([facility]) [address] [facility], [place], [address], 08/20/2024 06:18:09 08/19/2008/20/2024 CBC WITH DIFFE RENTI AL/PL ATELE T hemoglobin 13.7 g/dL 11.1-1 5.9 Not Available [facility] ([facility]) [address], [place], [address], 08/20/2024 06:18:09 08/19/2008/20/2024 CBC WITH DIFFE RENTI AL/PL ATELE T hematocrit 41.5 % 34.0-4 6.6 Not Available [facility] ([facility]) [address] [facility], [place], [address], 08/20/2024 06:18:09 08/19/2008/20/2024 CBC WITH DIFFE RENTI AL/PL ATELE T MCV 100 fL 79-97 above high normal Not Available [facility] ([facility]) [address] [facility], [place], [address], 08/20/2024 06:18:09 08/19/2008/20/2024 CBC WITH DIFFE RENTI AL/PL ATELE T MCH 32.9 pg 26.6-3 3.0 Not Available [facility] ([facility]) [address] [facility], [place], [address], 08/20/2024 06:18:09 08/19/2008/20/2024 CBC WITH DIFFE RENTI AL/PL ATELE T MCHC 33.0 g/dL 31.5-3 5.7 Not Available [facility] ([facility]) [address], [place], [address], 08/20/2024 06:18:09 08/19/2008/20/2024 CBC WITH DIFFE RENTI AL/PL ATELE T RDW 11.9 % 11.7-1 5.4 Not Available [facility] ([facility]) [address] [facility], [place], [address], 08/20/2024 06:18:09 08/19/2008/20/2024 CBC WITH DIFFE RENTI AL/PL ATELE T platelets 278 x10e3 /uL 150-45 0 Not Available [facility] ([facility]) [address] [facility], [place], [address], 08/20/2024 06:18:09 08/19/20 24 08/20/2024 CBC WITH DIFFE RENTI AL/PL ATELE T neutrophils 62 % notest ab. Not Available [facility] ([facility]) [address] [facility], [place], [address], 08/20/2024 06:18:09 08/19/20 24 08/20/2024 CBC WITH DIFFE RENTI AL/PL ATELE T lymphs 26 % notest ab. Not Available [facility] ([facility]) [address], [place], [address], 08/20/2024 06:18:09 08/19/20 24 08/20/2024 CBC WITH DIFFE RENTI AL/PL ATELE T monocytes 10 % notest ab. Not Available [facility] ([facility]) [address] [facility], [place], [address], 08/20/2024 06:18:09 08/19/20 24 08/20/2024 CBC WITH DIFFE RENTI AL/PL ATELE T eos 2 % notest ab. Not Available [facility] ([facility]) [address], [place], [address], 08/20/2024 06:18:09 08/19/20 24 08/20/2024 CBC WITH DIFFE RENTI AL/PL ATELE T basos 0 % notest ab. Not Available [facility] ([facility]) [address] [facility], [place], [address], 08/20/2024 06:18:09 08/19/20 24 08/20/2024 CBC WITH DIFFE RENTI AL/PL ATELE T neutrophils (absolute) 3.3 x10e3 /uL 1.4-7. 0 Not Available [facility] ([facility]) [address] [facility], [place], [address], 08/20/2024 06:18:09 08/19/20 24 08/20/2024 CBC WITH DIFFE RENTI AL/PL ATELE T lymphs (absolute) 1.4 x10e3 /uL 0.7-3. 1 Not Available [facility] ([facility]) [address] [place], [address], 08/20/2024 06:18:09 08/19/20 24 08/20/2024 CBC WITH DIFFE RENTI AL/PL ATELE T monocytes(ab solute) 0.6 x10e3 /uL 0.1-0. 9 Not Available [facility] ([facility]) [address] [place], [address], 08/20/2024 06:18:09 08/19/20 24 08/20/2024 CBC WITH DIFFE RENTI AL/PL ATELE T eos (absolute) 0.1 x10e3 /uL 0.0-0. 4 Not Available [facility] ([facility]) [address] [place], [address], 08/20/2024 06:18:09 08/19/20 24 08/20/2024 CBC WITH DIFFE RENTI AL/PL ATELE T baso (absolute) 0.0 x10e3 /uL 0.0-0. 2 Not Available [facility] ([facility]) [address] [place], [address], 08/20/2024 06:18:09 08/19/20 24 08/20/2024 CBC WITH DIFFE RENTI AL/PL ATELE T immature granulocytes 0 % notest ab. Not Available [facility] ([facility]) [address] [place], [address], 08/20/2024 06:18:09 08/19/20 24 08/20/2024 CBC WITH DIFFE RENTI AL/PL ATELE T immature zohra (abs) 0.0 x10e3 /uL 0.0-0. 1 Not Available [facility] ([facility]) [address], [place], [address], 08/20/2024 06:18:09 08/19/20 24 08/19/2024 elect rocar diogr am No observ ation record ed. KRUNAL In-Office Order Internal Use Only DO Not Attach Compendium DO Not Attach Compendium, Do Not Delete/merge, [id number] 08/19/2024 11:43:56 08/19/2008/19/2024 elect rocar diogr am No observ ation record ed. BARCODE In-Office Order Internal Use Only DO Not Attach Compendium DO Not Attach Compendium, Do Not Delete/merge, [id number] 08/19/2024 13:02:33 09/09/20 24 09/09/2024 MRI, brain , w/o contr ast No observ ation record ed. [facility] [address] [place], [address], 09/10/2024 14:50:35 09/09/20 24 09/09/2024 US, duple x, carot id arter y No observ ation record ed. [facility] [address] [place], [address], 09/10/2024 14:51:36 Result Notes None recorded. Problems Name Problem SNOMED Code Status Onset Date Resolution Date Notes Provider Name and Address Organization Details Recorded Time Rhinitis 45399681 Active 2023 SANJAY Childs [place] - [facility] 15:53:13 Low back pain 957702662 Active 2023 SANJAY Childs, [facility] 15:53:13 Hyperlipidemia 79045754 Active 2023 Colleen Estrada [place] null, [place] - [facility] 4 15:18:01 Osteopenia 892543781 Active 2023 Colleen Estrada [place] null, [place] - [facility] 4 15:18:01 Anxiety 02035905 Active 2023 Lori Soni MD Attn: Bhavik bautista,[address] [facility], [place], [address], [place] - [facility] 21:46:11 Gastroesophage al reflux disease without esophagitis 390002753 Active 2023 Lori Soni MD Attn: Bhavik bautista,[address], [place], [address], [place] - [facility] 21:46:43 Problem Notes None recorded. Procedures Surgical History Date Name Laterality Status Provider Name and Address Organization Details Recorded Time Back Surgery completed SANJAY Castro - [facility] 01/31/2024 15:29:08 Tubal Ligation completed Monica Roy [place] - [facility] 01/31/2024 15:29:20 Total hysterectomy completed Monica Roy [place] - [facility] 01/31/2024 15:29:31 Imaging Results Imaging Date Name Status LastModified by Organization Details LastModified Time 08/19/2024 electrocardiogram completed BRIGHTON In-Offi ce Order Internal Use Only DO Not Attach Compendium DO Not Attach Compendium, Do Not Delete/merge, [id number] 08/19/2024 11:43:56 08/19/2024 electrocardiogram completed BARCODE In-Offi ce Order Internal Use Only DO Not Attach Compendium DO Not Attach Compendium, Do Not Delete/merge, [id number] 08/19/2024 13:02:33 09/09/2024 MRI, brain, w/o contrast completed [facility] [address] [place], [address], 09/10/2024 14:50:35 09/09/2024 US, duplex, carotid artery completed [facility] [address] [place], [address], 09/10/2024 14:51:36 Procedure Notes None recorded. Medical Equipment None Reported. Allergies No known drug allergies Medications Name Sig Start Date Stop Date Status Note LastModified by Organization Details LastModified Time latanopro st 0.005 % eye drops INSTILL 1 DROP IN BOTH EYES EVERY DAY AT BEDTIME active Not Available Not Available No t Available atorvasta tin 10 mg tablet TAKE 1 TABLET BY MOUTH DAILY 2024 active Not Available Not Available Not Avai lable azithromy antoni 250 mg tablet 01/30 completed Not Available Not Available Not Available tizanidin e 4 mg tablet TAKE 1 TABLET BY MOUTH TWICE DAILY 01/30 completed Not Available Not Available Not Available hydrocodo ne 5 mg-acetam inophen 325 mg tablet TAKE 1 TABLET BY MOUTH EVERY 8 HOURS FOR 7 DAYS DIRECTED 01/30 completed Not Available Not Available Not Available meloxicam 15 mg tablet TAKE 1 TABLET BY MOUTH EVERY DAY 01/30 completed Not Available Not Available Not Available prednison e 20 mg tablet TAKE 2 TABLETS BY MOUTH EVERY DAY FOR 5 DAYS. START TAKING ON 09/14/2004/28 completed not taking, end of course Not Available Not Available Not Available tramadol 50 mg tablet TAKE 1/2 TABLET BY MOUTH EVERY 6 HOURS NEEDED FOR PAIN active Not Available Not Available No t Available lorazepam 0.5 mg tablet TAKE 1 TABLET BY MOUTH TWICE DAILY 01/30 completed Not Available Not Available Not Available pantopraz ole 40 mg tablet,de layed release Take 1 tablet every day by oral route. active Not Available Not Available No t Available fluoxetin e 10 mg capsule TAKE 1 CAPSULE BY MOUTH EVERY DAY 01/30 completed Not Available Not Available Not Available methylpre dnisolone 4 mg tablets in a dose pack FOLLOW PACKAGE DIRECTIO NS 06/03 completed Not Available Not Available Not Available naproxen 500 mg tablet TAKE 1 TABLET BY MOUTH EVERY 12 HOURS NEEDED 01/30 completed Not Available Not Available Not Available diazepam 5 mg tablet TAKE 1 TABLET BY MOUTH TWICE DAILY 06/03 completed not taking Not Available Not Available Not Available cyclobenz aprine 5 mg tablet TAKE 1 TABLET BY MOUTH EVERY 8 HOURS 06/03 completed not taking Not Available Not Available Not Available Premarin 0.625 mg/gram vaginal cream INSERT / APPLICAT ORFUL VAGINALL Y EVERY DAY 04/28 completed pt reports no longer taking Not Available Not Available Not Available Prolia 60 mg/mL subcutane ous syringe INJECT 60MG SUBCUTAN EOUSLY EVERY 6 MONTHS 2024 active Not Available Not Available Not Avai lable aspirin 81 mg capsule Take 1 capsule every day by oral route. active Not Available Not Available No t Available Vitals Date Recorded Body height Heart rate Oxygen saturation Oxygen saturation in Arterial blood by Pulse oximetry Respiratory rate Systolic blood pressure Diastolic blood pressure Systolic blood pressure Diastolic blood pressure Systolic blood pressure Diastolic blood pressure Provider Name and Address Organization Details Last Updated DateTime 4 160.02 cm 74 /min 94 % 94 % 20 /min 138 mm[Hg] 82 mm[Hg] 146 mm[Hg] 86 mm[Hg] 158 mm[Hg] 82 mm[Hg] Vickie Montano MA [facility] 4 09:29:18 Date Recorded Body height Provider Name an d Address Organization Details Last Updated DateTime 09/02/2024 160.02 cm Diane Hernandez MA [facility] 4 14:18:04 Date Recorded Body mass index (BMI) Body weight Heart rate Oxygen saturation Oxygen saturation in Arterial blood by Pulse oximetry Systolic blood pressure Diastolic blood pressure Provider Name and Address Organization Details Last Updated DateTime 4 23.4 kg/m2 99996.9 1 g 68 /min 98 % 98 % 122 mm[Hg] 78 mm[Hg] Ai Barron [facility] 4 14:28:23 Date Recorded Body height Body mass index (BMI) Body weight Heart rate Oxygen saturation Oxygen saturation in Arterial blood by Pulse oximetry Systolic blood pressure Diastolic blood pressure Provider Name and Address Organization Details Last Updated DateTime 4 160.02 cm 23.4 kg/m2 31373.1 9 g 80 /min 94 % 94 % 130 mm[Hg] 80 mm[Hg] Ai Barron [facility] 4 14:48:16 Date Recorded Pain severity - 0-10 verbal numeric rating [Score] - Reported Provider Name and Address Organization Details Last Updated DateTime 09/10/2024 0 Xiomara Moran [facility] 09/10/2024 14:54:41 Date Recorded Body height Body mass index (BMI) Body weight Heart rate Oxygen saturation Oxygen saturation in Arterial blood by Pulse oximetry Systolic blood pressure Diastolic blood pressure Provider Name and Address Organization Details Last Updated DateTime 5 160.02 cm 22.8 kg/m2 01044.3 4 g 78 /min 97 % 97 % 128 mm[Hg] 78 mm[Hg] Ai Barron [place] - [facility] 5 15:14:39 Social History Question Answer Notes LastModified by Organizat ion Details LastModified Time Tobacco Smoking Status Never Smoker Monica SANJAY Roy null, [place] - [facility] 01/31/2024 15:28:36 Do You Have An Advance Directive? No Information n ot available 09/02/2024 What Is Your Level Of Alcohol Consumption? None Information not available 01/31/2024 Are You Blind Or Do You Have Difficulty Seeing? No Information n ot available 09/02/2024 What Is Your Level Of Caffeine Consumption? None Information not available 01/31/2024 In The 14 Days Before Symptom Onset, Have You Had Close Contact With A Laboratory-confirm ed COVID-19 While That Case Was Ill? No Information n ot available 09/02/2024 In The 14 Days Before Symptom Onset, Have You Had Close Contact With A Person Who Is Under Investigation For COVID-19 While That Person Was Ill? No Information not available 09/02/2024 Have You Been To An Area Known To Be High Risk For COVID-19? No Information not available 09/02/2024 Are You Currently Employed? No Information not available 09/02/2024 Are You Deaf Or Do You Have Serious Difficulty Hearing? No Information not available 09/02/2024 What Type Of Diet Are You Following? REGULAR Information n ot available 09/02/2024 Are There Any Guns Present In Your Home? No Information not available 09/02/2024 In The Past 7 Days, How Many Days Did You Exercise? 0 Information not available 09/10/2024 In The Past 7 Days, How Much Pain Have You Spearfish? Some Information not available 09/10/2024 In General, Would You Say You Health Is: Good Information not available 09/10/2024 How Would You Describe The Condition Of Your Mouth And Teeth- Including False Teeth Or Dentures? Good Information n ot available 09/10/2024 Each Night, How Many Hours Of Sleep Do You Get? 8 Information no t available 09/10/2024 Has Anyone Ever Told You That You Snore? No Information not available 09/10/2024 In The Past 7 Days, How Often Have You Spearfish Sleepy In The Daytime? Sometimes Information not available 09/10/2024 # Alcohol Drinks Per Week 0 Information not available 09/10/2024 What Was The Date Of Your Most Recent Tobacco Screening? 12/09/2024 Information not available 12/09/2024 What Is Your Relationship Status? Single Information not available 09/02/2024 Do You Use Your Seat Belt Or Car Seat Routinely? Yes Information not available 06/03/2024 Do You Have Smoke And Carbon Monoxide Detectors In Your Home? Yes Information not available 06/03/2024 Do You Feel Stressed (tense, Restless, Nervous, Or Anxious, Or Unable To Sleep At Night)? [id number] Information not available 09/10/2024 Do You Use Any Illicit Or Recreational Drugs? No Information not available 01/31/2024 Do You Use Sunscreen Routinely? Yes Information not available 09/02/2024 Has Tobacco Cessation Counseling Been Provided? No Information not available 06/03/2024 Do You Or Have You Ever Used Any Other Forms Of Tobacco Or Nicotine? No Information not available 06/03/2024 Sex: Female Functional Status Question Answer Note LastModified by Organizat ion Details LastModified Time Are you able to care for yourself? Yes Information not available 09/02/2024 What is your exercise level? None active lifestyle Information not available 09/10/2024 Mental Status None recorded. Family History Relationship Description Onset Age of this Age Resolved Age Notes LastModified by Organization Details LastModified Time Sister Diabetes mellitus [email or web address] available 2023 15:27:42 Sister Migraine [email or web address] Not available 01/31/2024 15:31:18 Mother Diabetes mellitus [email or web address] available 2023 15:27:42 Mother Heart disease [email or web address] available 2023 15:27:55 Mother Migraine [email or web address] Not available 01/31/2024 15:31:18 Father Heart disease [email or web address] Not available 2023 15:27:55 Father Hypertensive disorder [email or web address] Not available 2023 15:28:12 Brother Heart disease [email or web address] Not available 2023 15:30:45 Notes:son had spindle cell m alignancy of the pelvis with metastasis Medical History Condition Response Coronary Artery Disease N Other N High Blood Pressure N Atrial Fibrillation N Thyroid Problems N Kidney or Bladder Problems N Blood Clots N COPD N Depression Y GI Problems N Have you had a mammogram in the last yea r? N Skin Problems N Anemia N Heart Attack (IA) N Anxiety Disorder Y Diabetes N Muscle, Joint, or Bone Problems Y Seizures/Epilepsy N Have you had a colonoscopy in the last 1 0 years? N Acid Reflux (GERD) Y Cancer N Stroke N Asthma N Allergies Y Have you had a PSA blood test in the las t year? N High Cholesterol Y Hepatitis N Liver Disease N Headaches Y Heart Failure N Osteoporosis Y Gynecological History Statement/Question Response If Post Menopausal, Age at Menopause Obstetrics History GPAL:G 1 P 1 0 0 0 Type Value Full Term 1 Total 1 Immunizations Vaccine Type Date Status Note Provider Nam e and Address Organization Details Recorded Time Influenza, high-dose, quadrivalent, PF 0 completed ELISA Sim[place], [place] - [facility] 04/28/2024 14:48:53 Influenza, high-dose, quadrivalent, PF 2 completed ELISA [place] [facility] 04/28/2024 14:48:53 Influenza, high-dose, quadrivalent, PF 1 ELISA [place] [facility] 04/28/2024 14:48:53 Influenza, high-dose, quadrivalent, PF 2 completed ELISA [place] [facility] 04/28/2024 14:48:53 Influenza, high-dose, quadrivalent, PF 3 completed Michelle Dooley RMA [place] [facility] 04/28/2024 14:48:53 COVID-19, mRNA, LNP-S, PF, 100 mcg/0.5mL dose or 50 mcg/0.25mL dose 1 completed Michelle Do[place] [facility] 04/28/2024 14:48:53 COVID-19, mRNA, LNP-S, PF, 100 mcg/0.5mL dose or 50 mcg/0.25mL dose 1 completed Michelle Dooley [place] [facility] 04/28/2024 14:48:53 COVID-19, mRNA, LNP-S, PF, 30 mcg/0.3 mL dose 1 completed Michelle Do[place] [facility] 04/28/2024 14:48:53 Pneumococcal conjugate PCV20, polysaccharide [id number] conjugate, adjuvant, PF 2 completed Michelle Do[place] [facility] 04/28/2024 14:48:53 COVID-19, mRNA, LNP-S, bivalent, PF, 30 mcg/0.3 mL dose 2 completed Michelle Do[place] [facility] 04/28/2024 14:48:53 COVID-19, mRNA, LNP-S, bivalent, PF, 30 mcg/0.3 mL dose 2 completed Michelle Do[place] [facility] 04/28/2024 14:48:53 Pneumococcal conjugate PCV 13 9 completed Michelle Do[place] [facility] 04/28/2024 14:48:53 Influenza, high-dose, trivalent, PF 7 completed Michelle Do[place] [facility] 04/28/2024 14:48:53 Influenza, high-dose, trivalent, PF 3 completed Michelle Do[place] [facility] 04/28/2024 14:48:53 Influenza, high-dose, trivalent, PF 8 completed Michelle Dooley RMA null, [place] - [facility] 04/28/2024 14:48:53 Influenza, high-dose, trivalent, PF 7 completed Michelle Dooley [place] [facility] 04/28/2024 14:48:53 Influenza, split virus, quadrivalent, PF 5 completed Michelle Dooley [place] [facility] 04/28/2024 14:48:53 Influenza, high-dose, trivalent, PF 4 completed Lori Soni MD Attn: [address]ing[address] [place], [address], [facility] 09/14/2024 11:56:03 Past Encounters Encounter ID Performer Location Encounter Start Date Encounter Closed Date Diagnosis/Indication Diagnosis SNOMED-CT Code Diagnosis ICD10 Code Diagnosis Note [id number] MD Ary [facility] (Adult Med) [address] [place] [id number] 01/31/2024 15:02:44 01/31/2024 16:50:21 Backache 988304131 M54.9 Hyperlipidemia 20846019 E78.5 [id number] Lori Soni MD [address] [place] [address] 04/28/2024 14:14:31 04/28/2024 15:54:42 Low back pain 572003230 M54.50 Rhinitis 74704920 J00 [id number] MD Ary Hudson (Adult Med) [address] [place] [id number] 0 06/03/2024 14:00:09 06/03/2024 15:35:44 Osteopenia 430043743 M85.80 Hyperlipidemia 28957515 E78.5 Anxiety 01359083 F41.9 Gastroesop hageal reflux disease without esophagitis 915939767 K21.9 [id number] MD [facility]ry [facility] (Adult Med) [address] [place] [address] [id number] 0 08/19/2024 09:15:11 08/19/2024 11:01:53 Dizziness 248293815 R42 Gastroesop hageal reflux disease without esophagitis 142047604 K21.9 [id number] [facility] [address] [place] [id number] 0 09/02/2024 14:05:54 09/02/2024 15:19:12 Body mass index 20-24 - normal 409231019 Z68.23 Dizziness 448577490 R42 Administra tion of influenza vaccine 17359016 Z23 [id number] Lori Soni MD [facility] (Adult Med) [address] [place] [id number] 0 09/10/2024 14:28:44 09/10/2024 15:32:58 Adult health examination 544528594 Z00.00 Health Risk Assessment collected and reviewed Screening mammography 24 451675 Z12.31 Screening for malignant neoplasm of colon 922941445 Z12.11 [id number] [facility] [address] [place] [id number] 0 09/16/2024 09:29:39 09/16/2024 10:19:36 Osteopenia 640412534 M85.80 [id number] [facility] [address] [place] [id number] 12/09/2024 14:40:46 12/09/2024 17:02:55 Body mass index 20-24 - normal 640555876 Z68.23 Low back pain 668819024 M54.50 Gastroesop hageal reflux disease without esophagitis 125194863 K21.9 Hyperlipidemia 44434332 E78.5 Osteopenia 844706065 M85 .80 Anxiety 97504045 F41.9 Health Concerns Section Related Observation LastModified by Organization Detai ls LastModified Time None Recorded Concern Status LastModified by Organization Details LastModified Time None Recorded Advance Directives Directive N: Payers Encounter Date Sequence Insurance Name Policy Number Policy Marquez Covered Member ID Marquez Member ID Guarantor Name 08/19/2024 1 [facility] (MEDICARE REPLACEMENT/ ADVANTAGE - HMO) [id number] Analia Marques [id number] Analia Marques 09/02/2024 1 [facility] (MEDICARE REPLACEMENT/ ADVANTAGE - HMO) [id number] Analia Marques [id number] Analia Marques 09/10/2024 1 [facility] (MEDICARE REPLACEMENT/ ADVANTAGE - HMO) [id number] Analia Marques [id number] Analia Marques 09/16/2024 1 [facility] (MEDICARE REPLACEMENT/ ADVANTAGE - HMO) [id number] Analia Marques [id number] Analia Marques 12/09/2024 1 [facility] (MEDICARE REPLACEMENT/ ADVANTAGE - HMO) [id number] Analia Marques [id number] Analia Marques Notes Date Note Type Note Provider Name and Address Organization Details Recorded Time 08/19/2024 text/html she had tried dizziness mostly when she stands up no chest pain or shortness for breath. Her GERD has been doing okay. Dyslipidemia she is taking her atorvastatin and trying to watch her diet Lori Soni MD Attn: Accounting[address] [place], [address], [facility] 08/21/2024 23:52:27 09/02/2024 text/html still having fara e dizziness but it can not be very specific about it. Lori Soni MD Attn: Accounting[address] [place], [address], [facility] 09/14/2024 11:57:07 09/10/2024 text/html MAW 2Reported bypatient.Diet and Nutrition:healthy diet Fracture Risk:no sudden unexplained fractures;history of fractures Concentration and Memory:no decreased concentrating ability; no memory lapses or loss; does not forget words Speech/Motor difficulties:no speech difficulties; no difficulty expressing formulated concepts; no difficulty with fine manipulative tasks; no difficulty writing/copying; no slowed reaction time; does not knock things over when trying to pick them up Hearing:no loss of hearing Vision:worse both distance and near(glasses, glaucoma) Activities of Daily Living:able to bathe with limited or no assistance; able to contol urination and bowels; able to dress with limited or no assistance; able to feed self with limited or no assistance; able to get out of chair or bed with limited or no assistance; able to groom with limited or no assistance; able to toilet with limited or no assistance Instrumental Activities of Daily Living:able to do house work with limited or no assistance; able to grocery shop with limited or no assistance; able to manage medications with limited or no assistance; able to manage money with limited or no assistance; able to prepare meals with limited or no assistance; able to use the phone with limited or no assistance Falls Risk Assessment:no frequent falls while walking; no fall since last visit; fall(s) in the past year 1;dizziness/vertigo Home Safety:no unsafe alessandro hazzards; no unsafe stairs; working smoke/CO detectors; practicing 'safer sex'; no fire arms; good lighting in the home;does not have hand bars in the bathroom/shower Lori Soni MD Attn: Accounting[address] [place], [address], [facility] [place] 09/10/2024 22:11:13 12/09/2024 text/html follow up on medical problems she is still struggling with a little bit of back pain GERD with nausea vomiting diet could be better with regards to intake of fat osteopenia with history compression fracture as she has refused to take any medication for her bones her anxiety has been high Lori Soni MD Attn: Accounting[address] [place], [address], [facility] 12/09/2024 21:25:23 OBGyn Episode No OBEpisode recorded.
[2025-02-24] MEDS: TETANUS,DIPHTHERIA,AC PERTUSSIS ADULT (0.5 ML) BOOSTRIX IM (17:46)
--- OUTSIDE RECORDS SUMMARY | 2025-02-24 17:54 | XMS_ITS | CONTINUITY OF CARE DOCUMENT ---
Author Name adalgisa jaiiker Address Unknown Organization [facility] Address [address] [place] [address] Phone [phone] Care Team Providers Care Business Analytics Faculty Member Name Role Phone Lawrence Venegas MD Unavailable [phone] LORI JACKSON MD Unavailable LORI JACKSON MD Unavailable [phone] PROBLEMS Condition Status Date Provider Notes Chest pain active Jeanne Rodriguez INSURANCE PROVIDERS Payer name Policy type / Coverage type [place] red constitution party ID [facility] MEDICARE ADVANTAGE (PPO) Other [id number] HISTORY OF PROCEDURES Procedure Date Procedure Name Provider Procedure Notes S tatus Mobile Cardiac Telem etry - Tech Lawrence Venegas MD completed Mobile Cardiac Telem etry - Prof Lawrence Venegas MD completed Cardiolite, 2 units Lawrence Venegas MD completed SPECT Images Lawrence Venegas MD comple cathy Stress EKG Lawrence Venegas MD complete d
--- OUTSIDE RECORDS SUMMARY | 2025-02-24 17:54 | XMS_ITS | Clinical Summary ---
Author Organization [facility] Address [address] [place] [address] Care Team Providers Care Cream Dipper Name Role Phone Unavailable Primary Care Provider [...]
--- OUTSIDE RECORDS SUMMARY | 2025-02-24 17:55 | XMS_ITS | Data Portability ---
Author Organization [place] - [facility] [employer], Main Office Address [address] [place] [address] Care Team Providers Care Music Instructor Name Role Phone LORI SONI Primary Care Provider [phone] LORI SONI Referring Provider [phone] Assessment Encounter Date Assessment Date Assessment LastModified by Organization Details LastModified Time 04/02/2023 04/02/2023 Continue current therapy follow-up months [email or web address] Not available 04/03/2023 08:47:18 08/13/2023 08/13/2023 See her back in a month does not want any counseling diagnosis discussed cpm [email or web address] Not available 08/13/2023 21:38:52 09/12/2023 09/12/2023 X-ray lumbar spi ne consider chiropractic referral tizanidine 4 mg b.i.d. p.r.n. [email or web address] Not available 09/15/2023 11:28:22 09/17/2023 09/17/2023 I will get her referred to a different chiropractor again her x-rays have been discussed she will stop the lorazepam to give her file him 5 mg b.i.d. as an anti spasmodic the cyclobenzaprine did not seem to help she will see me in a couple weeks [email or web address] Not available 09/17/2023 20:44:08 11/28/2023 11/28/2023 GERD discussed anxiety discussed arthritis discussed her chronic back pain and compression fracture discussed follow-up 4 months [email or web address] Not available 12/08/2023 15:44:11 Plan of Treatment Reminders Order Date Submit Date Provider Last Modified By Organization Details Last Modified Time Details Appointments None recorded. Lab None recorded. Referral chiropracto r referral - no auth required 2022 023 [email or web address] Jameel Craft, [address], [place], [address], Ph [phone] 17:47:02 Procedures None recorded. Surgeries None recorded. Imaging XR, lumbar spine 2022 023 [email or web address] [facility] ([facility]), [address] [place], [address], 3 14:30:27 Medication Orders tizanidine 4 mg tablet 2022 023 [email or web address] [id number], [address], [place], [place], [id number], 15:33:40 Patient TargetsNo targets recorded. Patient InstructionsNo instructions recorded. Reason for Referral Chiropractor Referral for Lo w back pain no auth required Referring Physician: Lori Soni, Internal Medicine, Encounter Date: 09/12/2023 Results Created Date Observation Date Name Description Value Unit Range Abnormal Flag Note LastModifiedBy Organization Detail LastModifiedTime 04/02/20 23 04/02/2023 COMPR EHENS KIM METAB OLIC PANEL sodium 140 mmol/ L 137-14 5 Not Available [facility] (Lab) [address] [place], [address], 04/02/2023 13:30:03 04/02/20 23 04/02/2023 COMPR EHENS KIM METAB OLIC PANEL potassium 4.2 mmol/ L 3.5-5. 1 Not Available [facility] (Lab) [address] [place], [address], 04/02/2023 13:30:03 04/02/20 23 04/02/2023 COMPR EHENS KIM METAB OLIC PANEL chloride 102 mmol/ L 98-107 Not Available [facility] (Lab) [address] [place], [address], 04/02/2023 13:30:03 04/02/20 23 04/02/2023 COMPR EHENS KIM METAB OLIC PANEL carbon dioxide 28 mmol/ L 22-30 Not Available [facility] (Lab) [address] [place], [address], 04/02/2023 13:30:03 04/02/20 23 04/02/2023 COMPR EHENS KIM METAB OLIC PANEL anion gap 14.2 mmol/ L 14-22 Not Available [facility] (Lab) [address] [place], [address], 04/02/2023 13:30:03 04/02/20 23 04/02/2023 COMPR EHENS KIM METAB OLIC PANEL glucose 81 mg/dL 70-99 Not Available [facility] (Lab) [address] [place], [address], 04/02/2023 13:30:03 04/02/20 23 04/02/2023 COMPR EHENS KIM METAB OLIC PANEL BUN 11 mg/dL 8-19 Not Available [facility] (Lab) [address] [place], [address], 04/02/2023 13:30:03 04/02/20 23 04/02/2023 COMPR EHENS KIM METAB OLIC PANEL creatinine 0.68 mg/dL 0.66-1 .25 Not Available [facility] (Lab) [address] [place], [address], 04/02/2023 13:30:03 04/02/20 23 04/02/2023 COMPR EHENS KIM METAB OLIC PANEL GFR >60 Refer ence Range : [place] ge GFR Healt hy Adult : >60 mL/mi n/1.7 3 m2 Chron ic Kidne y Disea se: 15-60 mL/mi n/1.7 3 m2 Kidne y Failu re: <15/m L/min /1.73 m2 www.n iddk. nih.g ov The MDRD study equat ion has not been valid ated in child jennifer <18 years of age; pregn ant women ; the elder ly >85 years of age; or in some racia l or ethni c subgr oups, such as Hispa nics. Outsi de the valid ated scott eters , estim ated GFR is less accur ate, requi ring clini jose judgm ent on a case- by-ca se basis . Clini jose inter preta tion for other races and ages must be made by the clini juve. The MDRD study equat ion has not been valid ated for the evalu ation of serum creat inine relat ed to nutri mikki l statu s or medic ation usage . For perso ns <18 years of age, a pedia tric GFR calcu lator is avail able on the [facility] websi te: https :[email or web address] w.phuc vicky.o hossein/pr ofess ional s/kdo qi/gf r_cal culat or Not Available [facility] (Lab) [address] [place], [address], 04/02/2023 13:30:03 04/02/20 23 04/02/2023 COMPR EHENS KIM METAB OLIC PANEL alkaline phosphatase 76 U/L 38-126 Not Available [facility] (Lab) [address] [place], [address], 04/02/2023 13:30:03 04/02/20 23 04/02/2023 COMPR EHENS KIM METAB OLIC PANEL alanine aminotransfe rase 26 U/L 0-35 Not Available [facility] (Lab) [address] [place], [address], 04/02/2023 13:30:03 04/02/20 23 04/02/2023 COMPR EHENS KIM METAB OLIC PANEL aspartate aminotransfe rase 34 U/L 15-37 Not Available [facility] (Lab) [address] [place], [address], 04/02/2023 13:30:03 04/02/20 23 04/02/2023 COMPR EHENS KIM METAB OLIC PANEL bilirubin, total 0.50 mg/dL 0.20-1 .30 Not Available [facility] (Lab) [address] [place], [address], 04/02/2023 13:30:03 04/02/20 23 04/02/2023 COMPR EHENS KIM METAB OLIC PANEL calcium 9.2 mg/dL 8.4-10 .2 Not Available [facility] (Lab) [address] [place], [address], 04/02/2023 13:30:03 04/02/20 23 04/02/2023 COMPR EHENS KIM METAB OLIC PANEL total protein 6.5 g/dL 6.3-8. 2 Not Available [facility] (Lab) [address] [place], [address], 04/02/2023 13:30:03 04/02/20 23 04/02/2023 COMPR EHENS KIM METAB OLIC PANEL albumin 3.9 g/dL 3.0-4. 4 Not Available [facility] (Lab) [address] [place], [address], 04/02/2023 13:30:03 04/02/20 23 04/02/2023 COMPR EHENS KIM METAB OLIC PANEL globulin 2.6 g/dL 2.6-4. 2 Not Available [facility] (Lab) [address] [place], [address], 04/02/2023 13:30:03 04/02/20 23 04/02/2023 COMPR EHENS KIM METAB OLIC PANEL A/G ratio 1.5 ratio 1.0-2. 0 Not Available [facility] (Lab) [address] [place], [address], 04/02/2023 13:30:03 04/02/20 23 04/02/2023 LIPID PANEL cholesterol 170 mg/dL 140-19 9 NIH MELANIE NSUS RECOM MENDA TION FOR SCOTT STERO L: ADULT CHILD LOW RISK: <200 <170 BORDE RLINE : <200- 239 ----- HIGH RISK: >240 >200 Not Available [facility] (Lab) [address] [place], [address], 04/02/2023 13:30:08 04/02/20 23 04/02/2023 LIPID PANEL triglyceride s 69 mg/dL 0-150 NIH MELANIE NSUS REPOR T RECOM MENDA TION FOR TRIGL YCERI LORETA: ADULT CHILD LOW RISK: <150 ----- BODER LINE: 150-1 99 ----- HIGH RISK: >200 ----- Not Available [facility] (Lab) [address] [place], [address], 04/02/2023 13:30:08 04/02/20 23 04/02/2023 LIPID PANEL HDL cholesterol 92 mg/dL 40- Not Available [facility] (Lab) [address] [place], [address], 04/02/2023 13:30:08 04/02/20 23 04/02/2023 LIPID PANEL LDL cholesterol, calculated 64 mg/dL 0-130 NIH MELANIE NSUS REPOR T RECOM MENDA TIONS FOR LDL: ADULT CHILD LOW RISK <130 <110 (OPTI MAL LDL) <100 ----- BORDE RLINE : 130-1 59 ----- HIGH RISK: >160 >130 A TRIGL YCERI DE RESUL T >400 INVAL IDATE S THE CALCU LATIO N FOR LDL FRACT IONAT ION - THE LDL RESUL T WILL NOT BE REPOR THELMA. Not Available [facility] (Lab) [address] [place], [address], 04/02/2023 13:30:08 04/02/20 23 04/02/2023 CBC/C OMPLE TE BLD COUNT W/DIF F white blood cells 5.6 x10'3 /uL 4.2-10 .8 Not Available [facility] (Lab) [address] [place], [address], 04/02/2023 14:58:39 04/02/20 23 04/02/2023 CBC/C OMPLE TE BLD COUNT W/DIF F red blood cells 4.05 x10'6 /uL 3.80-5 .20 Not Available [facility] (Lab) [address] [place], [address], 04/02/2023 14:58:39 04/02/20 23 04/02/2023 CBC/C OMPLE TE BLD COUNT W/DIF F hemoglobin 13.1 g/dL 12.0-1 5.6 Not Available [facility] (Lab) [address] [place], [address], 04/02/2023 14:58:39 04/02/20 23 04/02/2023 CBC/C OMPLE TE BLD COUNT W/DIF F hematocrit 40.8 % 35.7-4 5.7 Not Available [facility] (Lab) [address] [place], [address], 04/02/2023 14:58:39 04/02/20 23 04/02/2023 CBC/C OMPLE TE BLD COUNT W/DIF F mean red cell volume 100.7 fL 82.0-9 9.0 high Not Available [facility] (Lab) [address] [place], [address], 04/02/2023 14:58:39 04/02/20 23 04/02/2023 CBC/C OMPLE TE BLD COUNT W/DIF F mean red cell hemoglobin 32.3 pg 27.0-3 3.0 Not Available [facility] (Lab) [address] [place], [address], 04/02/2023 14:58:39 04/02/20 23 04/02/2023 CBC/C OMPLE TE BLD COUNT W/DIF F mean RBC HGB concentratio n 32.1 g/dL 31.0-3 6.0 Not Available [facility] (Lab) [address] [place], [address], 04/02/2023 14:58:39 04/02/20 23 04/02/2023 CBC/C OMPLE TE BLD COUNT W/DIF F red cell distribution width 12.6 % 11.8-1 5.5 Not Available [facility] (Lab) [address] [place], [address], 04/02/2023 14:58:39 04/02/20 23 04/02/2023 CBC/C OMPLE TE BLD COUNT W/DIF F platelets 265 x10'3 /uL 150-40 0 Not Available [facility] (Lab) [address] [place], [address], 04/02/2023 14:58:39 04/02/20 23 04/02/2023 CBC/C OMPLE TE BLD COUNT W/DIF F mean platelet volume 10.2 fL 9.0-12 .4 Not Available [facility] (Lab) [address] [place], [address], 04/02/2023 14:58:39 04/02/20 23 04/02/2023 CBC/C OMPLE TE BLD COUNT W/DIF F neutrophils 67.8 % 39.0-7 2.0 Not Available [facility] (Lab) [address] [place], [address], 04/02/2023 14:58:39 04/02/20 23 04/02/2023 CBC/C OMPLE TE BLD COUNT W/DIF F lymphocytes 21.6 % 16.0-4 7.0 Not Available [facility] (Lab) [address] [place], [address], 04/02/2023 14:58:39 04/02/20 23 04/02/2023 CBC/C OMPLE TE BLD COUNT W/DIF F monocytes 8.6 % 5.0-12 .0 Not Available [facility] (Lab) [address] [place], [address], 04/02/2023 14:58:39 04/02/20 23 04/02/2023 CBC/C OMPLE TE BLD COUNT W/DIF F eosinophils 1.4 % 1.0-7. 0 Not Available [facility] (Lab) [address] [place], [address], 04/02/2023 14:58:39 04/02/20 23 04/02/2023 CBC/C OMPLE TE BLD COUNT W/DIF F basophils 0.4 % 0.0-2. 0 Not Available [facility] (Lab) [address] [place], [address], 04/02/2023 14:58:39 04/02/20 23 04/02/2023 CBC/C OMPLE TE BLD COUNT W/DIF F immature granulocytes 0.2 % 0.00-0 .50 Not Available [facility] (Lab) [address] [place], [address], 04/02/2023 14:58:39 04/02/20 23 04/02/2023 CBC/C OMPLE TE BLD COUNT W/DIF F neutrophils, absolute count 3.77 x10'3 /uL 1.5-8. 0 Not Available [facility] (Lab) [address] [place], [address], 04/02/2023 14:58:39 04/02/20 23 04/02/2023 CBC/C OMPLE TE BLD COUNT W/DIF F lymphocytes, absolute count 1.20 x10'3 /uL 1.07-3 .43 Not Available [facility] (Lab) [address] [place], [address], 04/02/2023 14:58:39 04/02/20 23 04/02/2023 CBC/C OMPLE TE BLD COUNT W/DIF F monocytes, absolute count 0.48 x10'3 /uL 0.29-0 .99 Not Available [facility] (Lab) [address] [place], [address], 04/02/2023 14:58:39 04/02/20 23 04/02/2023 CBC/C OMPLE TE BLD COUNT W/DIF F eosinophils, absolute count 0.08 x10'3 /uL 0.02-0 .53 Not Available [facility] (Lab) [address] [place], [address], 04/02/2023 14:58:39 04/02/20 23 04/02/2023 CBC/C OMPLE TE BLD COUNT W/DIF F basophils, absolute count 0.02 x10'3 /uL 0.01-0 .08 Not Available [facility] (Lab) [address] [place], [address], 04/02/2023 14:58:39 04/02/20 23 04/02/2023 CBC/C OMPLE TE BLD COUNT W/DIF F immature granulocytes ,absolute 0.01 x10'3 /uL 0.00-0 .05 Not Available [facility] (Lab) [address] [place], [address], 04/02/2023 14:58:39 04/02/20 23 04/02/2023 CBC/C OMPLE TE BLD COUNT W/DIF F nucleated red blood cells 0.0 % -0 Not Available [facility] (Lab) [address] [place], [address], 04/02/2023 14:58:39 04/02/20 23 04/02/2023 CBC/C OMPLE TE BLD COUNT W/DIF F NRBC# 0.00 x10'3 /uL Not Available [facility] (Lab) [address] [place], [address], 04/02/2023 14:58:39 10/23/20 23 10/23/2023 VITAM IN D 25-HY DROXY vd25oh 45.5 NG/mL 30-100 Vitam in D Statu s: Defic ient: <20 ng/mL Insuf ficie nt: 20-29 ng/mL Suffi cient : 30-10 0 ng/mL Not Available [facility] (Lab) [address], [place], [address], 10/23/2023 18:52:30 04/18/20 23 04/18/2023 MAMMO , scree betzy, digit al, bilat eral [facility] [address] [place] [address] Palmira t Name: MARYJO OLAFANALIA ion #: [id number] Sex: F : 1945 5 Locati on: RAD Attend ing Physic kenyatta: MONICA SONI Orderi ng Physic kenyatta: MONICA SONI Exam Date: 04/18/20 8:10 AM Exam Name: MG SCRN BREAST TODD BILAT Admitt ing Diagno sis(es ): MAMMOG SIMON REPORT - FINAL EXAM: MG SCRN BREAST TODD BILAT HISTOR Y: SCREEN ING MAMMOG KEYONNA 77-yea r-old female with no curren t breast compla ints. The patien t has a distan t histor y of bilate ral breast benign excisi onal biopsi es. COMPAR AMANDA: 2020, 2019 TECHNI QUE: Bilate ral CC and MLO views of the breast s were perfor med. Digita l Mammog simon images were obtain ed. CAD (compu ter assist ed detect ion) was utiliz ed. 3D Digita l breast tomosy nthesi s was perfor med and used in the interp retati on of images . FINDIN GS: The breast s are extrem duke dense, which lowers the sensit ivity of mammog simon. Page 1 of 2 [facility] Palmira t Name: ANALIA CLARK Access ion #: [id number] Sex: F : 1945 5 Exam Date: 04/18/20 8:10 AM Exam Name: MG RUSSO BREAST TODD BILAT Admitt ing Diagno sis(es ): No masses , asymme tries, suspic ious calcif icatio ns, or gopal ectura l distor tion are seen. IMPRES LEXI: BIRADS 1: Assess ment comple te. Negati ve. Recomm end annual screen ing mammog simon. Accord ing to the [employer], yearly mammog noble are recomm ended starti ng at age 40 and contin uing as long as the woman is in good health . Clinic al Breast Exam should be part of the period ic health exam-a bout every 3 years for women in their 20s and 30s and every year for women 40 and over. Breast self-e xam is an option for women in their 20s. Any breast change noted on the breast self-e xam she would be report ed prompt ly [facility]. A negati ve mammog simon report should not discou rage follow -up or biopsy of a clinic ally signif icant findin g and/or abnorm ality. Dense breast tissue may obscur e small neopla sms. This palmira chaudhry has been entere d into a mammog simon remind er system with a target date for her next mammog keyonna. Create d and electr onical ly signed by: Daron novak MD Signed Date: 04/18/20 12:23 PM (CT) Dictat ed by: Daron novak MD (CT) (CT) Page 2 of 2 [facility] (Imaging) [address] [place], [address], 08/13/2023 14:07:13 09/12/2009/12/2023 XR, lumba r spine [facility] [address] [place] [address] Patien t Name: ANALIA CLARK ion #: [id number] Sex: F : 1945 7 Dictat ed By: Lj Gregg Attend ing Physic kenyatta: MONICA SONI Orderi ng Physic kenyatta: MONICA SONI Exam Date: Exam Name: XR L SPINE 4V+ Admitt ing Diagno sis(es ): INDICA TION: Trauma . TECHNI QUE: Fronta l and latera l views of the lumbar spine were obtain ed. COMPAR AMANDA: None. FINDIN GS: . There are no fractu res or sublux ations . Verteb ral body height s and disc spaces are well mainta ined. Parave rtebra l soft tissue s are unrema rkable . IMPRES LEXI: 1. Of the visual ized spine, there is no eviden ce for fractu re or sublux ation. Electr onical ly Signed by: Lj Gregg at 2022 11:11: 15 AM Page 1 [email or web address] [facility] (Imaging) [address] [place], [address], 10/03/2023 13:10:41 09/21/20 23 09/19/2023 MRI, lumba r spine , w/o contr ast No observ ation record ed. [facility] ([facility] Sched[facility]) [address] [place], [address], 10/17/2023 09:33:20 09/21/2009/19/2023 MRI, thora cic spine , w/o contr ast No observ ation record ed. Not Available 10:15:51 09/21/20 23 09/19/2023 XR, lumba r spine No observ ation record ed. Not Available 10:15:26 09/21/20 23 09/19/2023 XR, thora cic spine , 3 view No observ ation record ed. Not Available 10:16:06 10/22/20 23 10/22/2023 DEXA, axial skele ton [facility] [address] [place] [address] Patien t Name: ANALIA CLARK ion #: [id number] Sex: F : 1945 9 Dictat ed By: Lj Gregg Attend ing Physic kenyatta: MONICA SONI [facility] Physic kenyatta: MONICA SONI Exam Date: 2022 07:44 AM Exam Name: XR DEXA-H IPS PELVIS SPINE Admitt ing Diagno sis(es ): INDICA TION: post menopa usal DEXA SCAN: BONE DENSIT Y REPORT : -2.4 BMD for the left femur. Forear m: -5.4 of the total radius . 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 ------ ------ ------ ------ ------ ------ ------ ------ ----- *FRAX versio n 3.08. Fractu re probab ility calcul ated for an untrea thelma patien t. Fractu re probab ility may be lower if the patien t has receiv ed treatm ent. T-scor e: compar amanda by torri bautista ion (SD) to a young adult popula tion, matche d for sex and ethnic ity (used for postme nopaus al women and men >50 years) and classi fied by WHO criter ia. ?-1.0: normal <-1.0 to >-2.5: osteop enia ?-2.5: osteop orosis ?-2.5 plus fragil ity fractu re: severe osteop orosis Z-scor e: compar ed by SD to an age, sex, and ethnic ity popula tion (used for premen opausa l women, men <50 years, and childr en instea d of T-scor e WHO criter ia 4) Page [address] [place] [address] Patien t Name: ANALIA CLARK Access ion #: [id number] Sex: F : 1945 9 Dictat ed By: Lj Gregg Attend ing Physic kenyatta: RENETTA NEELY Physic kenyatta: MONICA SONI Exam Date: 2022 07:44 AM Exam Name: XR DEXA-H IPS PELVIS SPINE Admitt ing Diagno sis(es ): <-2.0: below expect ed range/ low bone densit y for age, and a cause should be sought Electr onical ly Signed by: Lj Gregg at 2022 08:46: 58 AM Page 2 [facility] (Imaging) [address], [place], [facility], 11/14/2023 10:18:14 09/09/20 24 09/09/2024 MRI, brain , w/o contr ast [facility] [address] [place] [id number] [phone] Patien t Name: ANALIA CLARK Access ion #: [id number] Sex: F : 1945 3 Dictat ed By: Trino Purvis ms Attend ing Physic kenyatta: MONICA SONI Physic kenyatta: MONICA SONI Exam Date: 2023 07:21 AM Exam Name: MRI BRAIN WO Admitt ing Diagno sis(es ): ACCESS ION #: [id number] EXAMIN ATION: MRI BRAIN WO INDICA TION: dizzin ess/he adache s COMPAR AMANDA: MRI T SPINE WO on DOS: 3, MRI L SPINE WO on DOS: 3, MRI BRAIN W/WO on DOS: 05/13/21 TECHNI QUE: Multip lanar, multis equenc e magnet ic resona nce imagin g of the brain was perfor med withou t the use of intrav enous contra st. FINDIN GS: No eviden ce of acute infarc t. No intrac ranial hemorr wyatt. No mass effect . There is mild perive ntricu lar matter T2/FLA IR hyperi ntensi ty is nonspe cific, but most common ly associ ated with chroni c microv ascula r diseas e. The ventri cles and sulci are normal in size for age. Clear basal cister ns. Flow voids in the major intrac ranial vessel s are mainta ined. No abnorm ality of the orbits . Parana debby sinuse s and mastoi d air cells are clear. No abnorm ality of the visual ized osseou s struct ures and extrac ranial soft tissue s. Page 1 [facility] [address] [place] [address] Patien t Name: ANALIA CLARK ion #: [id number] Sex: F : 1945 3 Dictat ed By: Trino Purvis ms Attend ing Physic kenyatta: [facility] Physic kenyatta: MONICA SONI Exam Date: 2023 07:21 AM Exam Name: MRI BRAIN WO Admitt ing Diagno sis(es ): IMPRES LEXI: 1. No acute infarc t, intrac ranial hemorr wyatt, mass effect , or hydroc ephalu s. 2. Mild perive ntricu lar matter T2/FLA IR hyperi ntensi ty is nonspe cific, but most common ly associ ated with chroni c microv ascula r diseas e. Electr onical ly Signed by: Trino Purvis ms at 2023 09:22: 38 AM Page 2 [email or web address] [facility] (Imaging) [address] [place], [address], 09/09/2024 10:31:06 Result Notes None recorded. Problems Name Problem SNOMED Code Status Onset Date Resolution Date Notes Provider Name and Address Organization Details Recorded Time Diverticul itis of colon 079149536 Active Not Available [facility] 3 06:50:34 Disorder of shoulder 896529667 Active Not Available [facility] 3 06:50:34 Hyperchole sterolemia 49461062 Active 2016 Not Available [facility] 3 06:50:34 Abdominal pain 33165200 Active Not Available [facility] 3 06:50:34 Gastroesop hageal reflux disease 231177263 Active 2021 Not Available [facility] 3 06:50:34 Dyspnea 513635981 Active 2021 Not Available [facility] 3 06:50:34 Pure hyperchole sterolemia 623448009 Active Not Available [employer] 3 06:50:34 Osteopenia 006476338 Active Not Available [facility] 3 06:50:34 Pain in right foot 9441279064695 07 Active 2021 Not Available [facility] 3 06:50:34 Acute pharyngiti s 256618524 Active 2021 Not Available [facility] 3 06:50:34 Contact dermatitis 67288917 Active 2021 Not Available [facility] 3 06:50:34 Pharyngiti s 048972808 Active 2021 Not Available [facility] 3 06:50:34 Anxiety 43951246 Active 2016 Not Available [facility] 3 06:50:34 Tinnitus 31832702 Active Not Available [facility] 3 06:50:34 Neck pain 26871599 Active Not Available [facility] 3 06:50:34 Skin lesion 39108321 Active 2022 Not Available [facility] 3 06:50:34 Cough 08225896 Active 2022 Not Available [facility] 3 06:50:34 Sciatica 19189727 Active 2022 Not Available [facility] 3 06:50:34 Low back pain 326625472 Active 2022 Not Available [facility] 3 06:50:34 Compressio n fracture of lumbar spine 449507935 Active 2022 Not Available [facility] 3 06:50:34 Notes:02-25-2018 states last eye exam approximately 2 yrs ago Problem Notes None recorded. Procedures Surgical History Date Name Laterality Status Provider Name and Address Organization Details Recorded Time 11/17/19 Most Recent Bone Density completed Not Available [facility] 01/10/2023 01:05:26 01/29/20 18 excision of lesion of anus completed Not Available [facility] 01/10/2023 01:05:31 01/03/20 18 Colonoscopy completed Not Available [facility] 01/11/20 01:05:31 01/02/20 18 Date of Last Colonoscopy completed Not Available [facility] 01/10/2023 01:05:26 Foot Surgery completed Not Available [facility] 01/10/2023 01:05:31 Hysterectomy completed [facility] 01/10/20[facility] 01:05:31 Hernia Repair completed Not Available [facility] 01/10/2023 01:05:31 Imaging Results Imaging Date Name Status LastModified by Organiz ation Details LastModified Time 04/18/2023 MAMMO, screening, digital, bilateral completed [facility] (Imaging) [address] [place], [address], 08/13/2023 14:07:13 09/12/2023 XR, lumbar spine completed [email or web address] [facility] (Imaging) [address] [place], [address], 10/03/2023 13:10:41 09/19/2023 MRI, lumbar spine, w/o contrast [facility] [facility] [address] [place], [address], 10/17/2023 09:33:20 09/19/2023 MRI, thoracic spine, w/o contrast completed Information not available 10/08/2023 10:15:51 09/19/2023 XR, lumbar spine completed Information not available 10/08/2023 10:15:26 09/19/2023 XR, thoracic spine, 3 view completed Information not available 10/08/2023 10:16:06 10/22/2023 DEXA, axial skeleton completed [facility] (Imaging) [address] [place], [address], 11/14/2023 10:18:14 09/09/2024 MRI, brain, w/o contrast completed [email or web address] [place] [address] (Imaging) [address] [place], [address], 09/09/2024 10:31:06 Procedure Notes None recorded. Medical Equipment None Reported. Allergies No known drug allergies Medications Name Sig Start Date Stop Date Status Note LastModified by Organization Details LastModified Time cyclobenzap rine 10 mg tablet TK 1 T PO QHS active Not Available Not Available No t Available prednisone 10 mg tablet TK 1 1/2 T PO BID FOR 7 DAYS 09/04 completed Not Available Not Available Not Available atorvastati n 10 mg tablet TAKE 1 TABLET BY MOUTH EVERY DAY active Not Available Not Available No t Available oxybutynin chloride ER 10 mg tablet,exte nded release 24 hr TK 1 T PO D 09/13 completed Not Available Not Available Not Available azithromyci n 250 mg tablet TAKE 2 TABLETS (500 MG) BY ORAL ROUTE ONCE DAILY FOR 1 DAY THEN 1 TABLET (250 MG) BY ORAL ROUTE ONCE DAILY FOR 4 DAYS 08/13 completed Not Available Not Available Not Available tizanidine 4 mg tablet TAKE 1 TABLET BY MOUTH TWICE DAILY 09/17 completed Not Available Not Available Not Available chlorzoxazo ne 500 mg tablet TK 1 T PO QID TAT 01/11 completed Not Available Not Available Not Available valacyclovi r 1 gram tablet TK 1 T PO TID FOR 7 DAYS 09/18 completed Not Available Not Available Not Available hydrocodone 5 mg-acetamin ophen 325 mg tablet TAKE 1 TABLET BY MOUTH EVERY 8 HOURS FOR 7 DAYS DIRECTED 11/28 completed Not Available Not Available Not Available ondansetron HCl 8 mg tablet Take 1 tablet every 8 hours by oral route for 2 days. 01/03 completed Not Available Not Available Not Available meloxicam 15 mg tablet TAKE 1 TABLET BY MOUTH EVERY DAY active Not Available Not Available No t Available sucralfate 1 gram tablet dissolve one tablet in an ounce of water and drink, follow with 3 ounces of water with meals and at bedtime 05/09 completed Not Available Not Available Not Available prednisone 20 mg tablet TAKE 2 TABLETS BY MOUTH EVERY DAY FOR 5 DAYS. START TAKING ON 3 11/28 completed Not Available Not Available Not Available prednisone 5 mg tablet TK 1 11/13 T PO BID FOR 7 DAYS 12/22 completed Not Available Not Available Not Available metronidazo le 500 mg tablet TAKE 1 TABLET BY MOUTH FOUR TIMES DAILY 03/01 completed Not Available Not Available Not Available ciprofloxac in 250 mg tablet Take 1 tablet twice a day by oral route for 7 days. 04/23 completed Not Available Not Available Not Available levofloxaci n 250 mg tablet 06/03 completed Not Available Not Available Not Available peg-electro lyte solution 420 gram oral solution TK PO UTD 02/25 completed Not Available Not Available Not Available omeprazole 40 mg capsule,del ayed release TK 1 C PO QD 09/13 completed Not Available Not Available Not Available tramadol 50 mg tablet Take 1 tablet every 6 hours by oral route. active Not Available Not Available No t Available amoxicillin 500 mg tablet 03/06 completed Not Available Not Available Not Available acyclovir 800 mg tablet 03/06 completed Not Available Not Available Not Available oxycodone-a cetaminophe n 5 mg-325 mg tablet 02/25 completed Not Available Not Available Not Available lorazepam 0.5 mg tablet TAKE 1 TABLET BY MOUTH TWICE DAILY active Not Available Not Available No t Available Kenalog 10 mg/mL suspension for injection In office injection administe red by the provider 05/[address] [facility]: [phone] Not Available Not Available Not Available meclizine 25 mg tablet 04/16 completed Not Available Not Available Not Available cephalexin 500 mg capsule TK 1 C PO TID FOR 7 DAYS UTD 09/17 completed Not Available Not Available Not Available pantoprazol e 40 mg tablet,tammy yed release TAKE 1 TABLET BY MOUTH EVERY DAY active Not Available Not Available No t Available neomycin-po lymyxin-dex ameth 3.5 mg/mL-10,00 0 unit/mL-0.1 % eye drops INSTILL 1 DROP INTO RIGHT EYE FOUR TIMES DAILY X 4 DAYS 08/13 completed Not Available Not Available Not Available ranitidine 150 mg tablet Take 1 tablet twice a day by oral route. active Not Available Not Available No t Available fluoxetine 10 mg capsule TAKE 1 CAPSULE BY MOUTH EVERY DAY active Not Available Not Available No t Available omeprazole 20 mg capsule,del ayed release TK ONE C PO DAILY 06/15 completed Not Available Not Available Not Available azelastine 137 mcg (0.1 %) nasal spray [place] 2 sprays twice a day by intranasa l route. active Not Available Not Available No t Available methylpredn isolone 4 mg tablets in a dose pack FOLLOW PACKAGE DIRECTION S 08/13 completed Not Available Not Available Not Available albuterol sulfate HFA 90 mcg/actuati on aerosol inhaler INHALE 2 PUFFS BY MOUTH EVERY 4 HOURS 09/04 completed Not Available Not Available Not Available fluticasone propionate 50 mcg/actuati on nasal spray,suspe nsion 09/18 completed Not Available Not Available Not Available naproxen 500 mg tablet TAKE 1 TABLET BY MOUTH EVERY 12 HOURS NEEDED active Not Available Not Available No t Available diazepam 5 mg tablet TAKE 1 TABLET BY MOUTH TWICE DAILY active Not Available Not Available No t Available cyclobenzap rine 5 mg tablet TAKE 1 TABLET BY MOUTH EVERY 8 HOURS 09/17 completed Not Available Not Available Not Available Premarin 0.625 mg/gram vaginal cream INSERT /2 APPLICATO RFUL VAGINALLY EVERY DAY 11/28 completed Not Available Not Available Not Available nitrofurant oin monohydrate /macrocryst als 100 mg capsule TK 1 C PO Q 12 H FOR 7 DAYS 10/31 completed Not Available Not Available Not Available Vesicare 5 mg tablet Take 1 tablet every day by oral route. active Not Available Not Available No t Available lidocaine (PF) 10 mg/mL (1 %) injection solution In office injection administe red by the provider 05/[address] [facility]: [phone] Not Available Not Available Not Available Fluzone High-Dose 2942-4410 (PF) 180 mcg/0.5 mL intramuscul ar syringe 01/03 completed Not Available Not Available Not Available Fluzone High-Dose (PF) 180 mcg/0.5 mL intramuscul ar syringe ADM 0.5ML IM UTD 09/17 completed Not Available Not Available Not Available Fluzone High-Dose Quad (PF) 240 mcg/0.7 mL IM syringe active Not Available Not Available N ot Available Vitals Date Recorded Body height Body mass index (BMI) Body weight Body temperature Heart rate Systolic blood pressure Diastolic blood pressure Provider Name and Address Organization Details Last Updated DateTime 3 160.02 cm 24.6 kg/m2 80961.3 4 g 98.6 [degF] 82 /min 120 mm[Hg] 72 mm[Hg] ELISA Ortiz [facility] [employer] [facility] 3 10:51:27 Date Recorded Body height Body mass index (BMI) Body weight Body temperature Heart rate Systolic blood pressure Diastolic blood pressure Provider Name and Address Organization Details Last Updated DateTime 3 160.02 cm 24.4 kg/m2 80137.7 5 g 97.5 [degF] 70 /min 120 mm[Hg] 70 mm[Hg] ELISA Ortiz [facility] [employer] [facility] 3 14:09:56 Date Recorded Body height Body mass index (BMI) Body weight Body temperature Heart rate Systolic blood pressure Diastolic blood pressure Provider Name and Address Organization Details Last Updated DateTime 3 160.02 cm 246 kg/m2 614176. 8 g 98.2 [degF] 70 /min 120 mm[Hg] 74 mm[Hg] Michelle yates RN [facility] [employer] [facility] 3 10:06:14 Date Recorded Body height Body mass index (BMI) Body weight Body temperature Heart rate Systolic blood pressure Diastolic blood pressure Provider Name and Address Organization Details Last Updated DateTime 3 160.02 cm 24.3 kg/m2 28557.1 5 g 98.5 [degF] 66 /min 122 mm[Hg] 70 mm[Hg] Michelle yates RN [facility] [employer] [facility] 3 15:36:13 Date Recorded Body height Body mass index (BMI) Body weight Body temperature Heart rate Respiratory rate Oxygen saturation Oxygen saturation in Arterial blood by Pulse oximetry Pain severity - 0-10 verbal numeric rating [Score] - Reported Systolic blood pressure Diastolic blood pressure Provider Name and Address Organization Details Last Updated DateTime 4 160.02 cm 23.8 kg/m2 06839.8 1 g 98.5 [degF] 65 /min 20 /min 97 % 97 % 3 134 mm[Hg] 82 mm[Hg] Parul Duffy RN [place] [facility] [employer] [facility] 4 14:45:51 Social History Question Answer Notes LastModified by Organization Details LastModified Time Tobacco Smoking Status Never Smoker Not Available [employer] 01/10/2023 00:58:55 Do You Have An Advance Directive? No Patient Declined Informatio n. MIGRATION.0301 [id number] Information not available 01/10/2023 What Is Your Level Of Alcohol Consumption? Occasional MIGRATION.0301 480564 Information not available 01/10/2023 Are You Blind Or Do You Have Difficulty Seeing? No MIGRATION.0301 557863 Information not available 01/10/2023 What Is Your Level Of Caffeine Consumption? Moderate MIGRATION.0301 [id number] Information not available 01/10/2023 How Much Tobacco Do You Chew? None MIGRATION.0301 [id number] Information not available 01/10/2023 In The 14 Days Before Symptom Onset, Have You Had Close Contact With A Laboratory-conf irmed COVID-19 While That Case Was Ill? No MIGRATION.0301 [id number] Information not available 01/10/2023 In The 14 Days Before Symptom Onset, Have You Had Close Contact With A Person Who Is Under Investigation For COVID-19 While That Person Was Ill? No MIGRATION.0301 031090 Information not available 01/10/2023 Are You Deaf Or Do You Have Serious Difficulty Hearing? No MIGRATION.0301 294196 Information not available 01/10/2023 What Type Of Diet Are You Following? REGULAR MIGRATION.0301 295910 Information not available 01/10/2023 Which Illicit Or Recreational Drugs Have You Used? None MIGRATION.0301 257870 Information not available 01/10/2023 Do You Or Have You Ever Used E-cigarettes Or Vape? Never Used Electronic Cigarettes MIGRATION.0301 116317 Information not available 01/10/2023 What Is The Highest Grade Or Level Of School You Have Completed Or The Highest Degree You Have Received? [id number] MIGRATION.0301 209042 Information not available 01/10/2023 What Is Your Occupation? Retired MIGRATION.0301 691693 Information not available 01/10/2023 Have There Been Any Changes To Your Family Or Social Situation? No MIGRATION.0301 738001 Information not available 01/10/2023 What Is The Fluoride Status Of Your Home? Unknown MIGRATION.0301 235708 Information not available 01/10/2023 Are There Any Guns Present In Your Home? No MIGRATION.0301 590868 Information not available 01/10/2023 Do You Use Insect Repellent Routinely? No MIGRATION.0301 809055 Information not available 01/10/2023 Where Do You Live? [place] MIGRATION.0301 128738 Information not available 01/10/2023 Do You Have A Medical Power Of Olap Developer? No MIGRATION.0301 645164 Information not available 01/10/2023 What Was The Date Of Your Most Recent Tobacco Screening? 09/17/2023 Information not available 09/17/2023 Have You Ever Been Counseled For Unhealthy Alcohol Use? No MIGRATION.0301 337931 Information not available 01/10/2023 Do You Have Any Pets? No MIGRATION.0301 720474 Information not available 01/10/2023 What Is Your Relationship Status? MIGRATION.0301 929917 Information not available 01/10/2023 Do You Use Your Seat Belt Or Car Seat Routinely? Yes MIGRATION.0301 074519 Information not available 01/10/2023 Do You Have Smoke And Carbon Monoxide Detectors In Your Home? Yes MIGRATION.0301 590991 Information not available 01/10/2023 Are You Passively Exposed To Smoke? Yes MIGRATION.0301 229282 Information not available 01/10/2023 Do You Or Have You Ever Used Smokeless Tobacco? Never Used Smokeless Tobacco MIGRATION.0301 791571 Information not available 01/10/2023 Are There Any Smokers In Your House? No MIGRATION.0301 976323 Information not available 01/10/2023 How Much Tobacco Do You Smoke? No MIGRATION.0301 850368 Information not available 01/10/2023 What Types Of Sporting Activities Do You Participate In? None MIGRATION.0301 493803 Information not available 01/10/2023 Do You Feel Stressed (tense, Restless, Nervous, Or Anxious, Or Unable To Sleep At Night)? [id number] [email or web address] Information not available 11/28/2023 Do You Use Any Illicit Or Recreational Drugs? No MIGRATION.0301 635012 Information not available 01/10/2023 Do You Use Sunscreen Routinely? Yes MIGRATION.0301 976019 Information not available 01/10/2023 Has Tobacco Cessation Counseling Been Provided? No Not Needed-nev er Smoked MIGRATION.0301 164344 Information not available 01/10/2023 How Many Years Have You Smoked Tobacco? 0 MIGRATION.0301 471754 Information not available 01/10/2023 Have You Recently Traveled Abroad? No MIGRATION.0301 590405 Information not available 01/10/2023 Do You Have Any Dietary Restrictions? No MIGRATION.0301 752118 Information not available 01/10/2023 Do You Or Have You Ever Used Any Other Forms Of Tobacco Or Nicotine? No MIGRATION.0301 750666 Information not available 01/10/2023 Sex: Female Functional Status Question Answer Note LastModified by Organizat ion Details LastModified Time Do you have difficulty walking or climbing stairs? No MIGRATION.40808 66837 Information not available 01/10/2023 Do you have transportation difficulties? No MIGRATION.37717 06233 Information not available 01/10/2023 Are you able to walk? YESWOREST MIGRATION.72925 38664 Information not available 01/10/2023 Do you have difficulty doing errands alone? No MIGRATION.77040 61376 Information not available 01/10/2023 Are you able to care for yourself? Yes MIGRATION.22535 71294 Information not available 01/10/2023 Do you have difficulty dressing or bathing? No MIGRATION.10486 72627 Information not available 01/10/2023 What is your exercise level? Moderate does housework and yard work MIGRATION.02153 45802 Information not available 01/10/2023 Mental Status Question Answer Note LastModified by Organizat ion Details LastModified Time Do you have difficulty concentrating, remembering or making decisions? No MIGRATION.[id number] 6 Information not available 01/10/2023 Family History Relationship Description Onset Age of this Age Resolved Age Notes LastModified by Organization Details LastModified Time Mother Heart disease MIGRATION.798 [id number] Not available 01/10/2023 01:05:31 Mother Diabetes mellitus MIGRATION.981 [id number] Not available 01/10/2023 01:05:31 Father Heart disease MIGRATION.896 [id number] Not available 01/10/2023 01:05:31 Sister Diabetes mellitus MIGRATION.374 [id number] Not available 01/10/2023 01:05:32 Sister Diabetes mellitus MIGRATION.007 [id number] Not available 01/10/2023 01:05:32 Sister Diabetes mellitus MIGRATION.746 [id number] Not available 01/10/2023 01:05:32 Son Sarcoma 52 MIGRATION.646 [id number] Not available 01/10/2023 01:05:32 Medical History Condition Response NERVE DISEASE N BLINDNESS N RHEUMATIC FEVER N KIDNEY STONES N BLADDER PROBLEMS N OTHER # 1 N POLIO N LUNG DISEASE/DISORDER N COPD N RADIATION / CHEMOTHERAPY N Other # 2 N BLOOD DISEASES N SURGERY N EAR OR HEARING PROBLEMS N MUMPS N BOWEL PROBLEMS N DEPRESSION (INCLUDING POST ) N STROKE/TIA N ULCERS N BENIGN PROSTATIC HYPERPLASIA N MEASLES N MYOCARDIAL INFARCTION N OBESITY N GERD/NAUSEA N ANEURYSM N URINARY/BLADDER/KIDNEY PROBLEMS N INPATIENT PSYCH CARE N CORONARY ARTERY DISEASE (CAD) N ADDICTION CONCERNS N ENDOMETRIOSIS N Impotence N USE OF BLOOD THINNERS N SKIN PROBLEMS N GASTROINTESTINAL DISORDER N PERIPHERAL VASCULAR DISEASE N MUSCLE,JOINT OR BONE PROBLEMS N GASTROINTESTINAL BLEEDING N BLOOD CLOTS N ASTHMA N CATARACTS N ERECTILE DYSFUNCTION N VARICOSITIES N GI PROBLEMS N Low Testosterone N INFERTILITY N AIDS/HIV N LIVER DISEASE N MALE HYPOGONADISM N HYPERTENSION N Deficiency N ANXIETY DISORDER Y BLOOD TRANSFUSION N ANEMIA/BLOOD DISORDER N CHRONIC EAR INFECTIONS N BRONCHITIS N TUBERCULOSIS N GLAUCOMA N FOOT PROBLEM N DIVERTICULITIS N SLEEP APNEA N CHICKENPOX N INFECTIOUS DISEASE N HEART ARRHYTHMIA N PROSTATE N INSOMNIA N HIGH CHOLESTEROL / HYPERLIPIDEMIA Y HYPERTHYROIDISM N EYE PROBLEMS N NEUROLOGICAL PROBLEMS N EDEMA N CHRONIC PAIN SYNDROME N HYPOTHYROIDISM N CAROTID BLOCKAGE N CONSTIPATION N BACK / NECK PROBLEMS Y HAVE YOU BEEN HOSPITALIZED OR SEEN IN [facility] IN THE PAST YEAR ? N ATHEROSCLEROSIS N BREAST PROBLEMS N DIALYSIS N ECZEMA N OSTEOPOROSIS ARTHRITIS Y APPENDICITIS N DIABETES, TYPE N BAD TEETH N ENT N HEARTBURN / REFLUX Y AUTISM SPECTRUM DISORDER (ASD) N HEPATITIS / LIVER DISEASE N PULMONARY DISEASE N GOUT N SLEEP DISORDER N ALZHEIMER'S DISEASE N Brain Problems N HERPES N DEMENTIA N HEADACHES/MIGRAINES Y SEIZURES/EPILEPSY N VASCULAR DISEASE N PACEMAKER N Blood Disorder N DIZZINESS N HEART DISEASE/HEART PROBLEMS N KIDNEY DISEASE N MULTIPLE SCLEROSIS N CARDIAC ARRHYTHMIA N CANCER: SPECIFY N ANESTHESIA COMPLICATIONS N ATRIAL FIBRILLATION N Gall Stones N PULMONARY EMBOLISM N AUTOIMMUNE DISEASE N Gynecological History Statement/Question Response Date of Last Pap Date of Last Mammogram 09/20/2020 Date of Last Colonoscopy 01/02/2018 Most Recent Bone Density 11/17/2019 Obstetrics History GPAL:G 0 P 0 0 0 0 Immunizations Vaccine Type Date Status Note Provider Nam e and Address Organization Details Recorded Time COVID-19, mRNA, LNP-S, PF, 30 mcg/0.3 mL dose 1 completed MINNA Miller, [facility] 11/28/2023 14:39:41 COVID-19, mRNA, LNP-S, PF, 100 mcg/0.5mL dose or 50 mcg/0.25mL dose 1 completed Not Available [facility] 10/27/2023 06:50:35 Influenza, high-dose, trivalent, PF 0 completed MINNA Miller, [facility] 11/28/2023 14:39:41 influenza, unspecified formulation 8 completed MINNA Miller, [facility] 11/28/2023 14:39:41 Influenza, high-dose, trivalent, PF 7 completed Parul Duffy RN null, [facility] 11/28/2023 14:39:41 COVID-19, mRNA, LNP-S, PF, 100 mcg/0.5mL dose or 50 mcg/0.25mL dose 1 completed MINNA Miller, [facility] 11/28/2023 14:39:41 Pneumococcal conjugate PCV20, polysaccharide OOQ132 conjugate, adjuvant, PF 2 completed Not Available [facility] 10/27/2023 06:50:35 Influenza, high-dose, quadrivalent, PF 1 completed Not Available [facility] 10/27/2023 06:50:35 Pneumococcal conjugate PCV 13 9 completed Parul Duffy RN [facility], [facility] [employer] [facility] 11/28/2023 14:39:41 Influenza, high-dose, trivalent, PF 7 completed Not Available [facility] 10/27/2023 06:50:35 Influenza, split virus, quadrivalent, PF 5 completed Not Available [facility] 10/27/2023 06:50:35 Past Encounters Encounter ID Performer Location Encounter Start Date Encounter Closed Date Diagnosis/Indication Diagnosis SNOMED-CT Code Diagnosis ICD10 Code Diagnosis Note [id number] [facility] Internal Med [facility] [address] [place] [address], [address] [address] 01/17/2021 00:00:00 01/17/2021 10:17:49 [id number] [facility] Ortho [place] [address] [place] [address] 02/09/2021 00:00:00 02/09/2021 14:31:37 [id number] [facility] Internal Med [facility] [address] [place] [address] [address] 05/09/2021 00:00:00 05/16/2021 15:36:48 [id number] [facility] Internal Med [facility] [address] [place] [address] [address] 05/23/2021 00:00:00 05/23/2021 11:25:33 [id number] [facility] ENT [place] [address] [place] [address] 05/26/2021 00:00:00 05/26/2021 12:55:40 [id number] [facility] Internal Med [facility] [address] [place] [address] [address] 06/08/2021 00:00:00 06/08/2021 21:57:52 [id number] [facility] Internal Med [facility] [address] [place] [address] [address] 07/27/2021 00:00:00 07/27/2021 20:56:50 [id number] [facility] Internal Med [place] [address] [facility] , [place] [address] 09/06/2021 00:00:00 09/06/2021 12:42:17 [id number] [facility] Internal Med [place] [address] [facility] [address] [place] [address] 11/16/2021 00:00:00 12/10/2021 14:56:04 [id number] [facility] Internal Med [facility] [address] [place], [place] [address]., [facility] [address] [place] [address] 12/07/2021 00:00:00 12/11/2021 11:51:52 [id number] [facility] Internal Med [facility] [address] [place], [place] [address]., [address] [address] 02/08/2022 00:00:00 02/08/2022 21:45:24 [id number] [facility] Internal Med [facility] [address] [place], [place] [address]., [address] [address] 03/01/2022 00:00:00 03/01/2022 22:57:57 [id number] [facility] Internal Med [facility] [address] [place], [place] [address]., [facility] [address] [place] [address] 04/18/2022 00:00:00 05/15/2022 17:05:38 [id number] [facility] Internal Med [facility] [address] [place], [place] [address]., [facility] [address] [place] [address] 05/01/2022 00:00:00 05/01/2022 10:40:44 [id number] [facility] Internal Med [facility] [address] [place], [place] [address]., [address] [address] 07/21/2022 00:00:00 07/21/2022 17:37:05 [id number] [facility] Internal Med [facility] [address] [place], [place] [address]., [address] [address] 09/04/2022 00:00:00 09/04/2022 10:40:19 [id number] [facility] Internal Med [facility] [address] [facility] [place] [address] 1 11/24/2022 00:00:00 11/24/2022 15:42:30 [id number] Lori Soni MD [facility] Internal Med [facility] [address] [facility] [place] [address] 1 04/02/2023 10:39:24 04/02/2023 11:38:23 Hypercholesterolemia 26297497 E78.00 Anxiety 60759684 F41.9 Gastroesop hageal reflux disease 160273370 K21.9 Pure hypercholesterolemia 221263069 E78.00 [id number] Lori Soni MD [facility] Internal Med [facility] [address] [place] [address] 1 08/13/2023 14:02:52 08/13/2023 15:24:55 Anxiety 11658067 F41.9 Hypercholesterolemia 136 76773 E78.00 Neck pain 24652339 M54.2 Bereavement 76833050 Z63 .4 [id number] Lori Soni MD [facility] Internal Med [facility] [address] [facility] [place] [address] 1 09/12/2023 09:53:43 09/12/2023 11:01:36 Low back pain 458534802 M54.50 [id number] Lori Soni MD [facility] Internal Med [facility] [address] [facility] [place] [address] 1 09/17/2023 15:15:51 09/17/2023 16:07:56 Low back pain 822717364 M54.50 [id number] Lori Soni MD [facility] Internal Med [facility] [address] [facility] [address] 1 11/28/2023 14:31:25 11/28/2023 15:47:48 Hypercholesterolemia 20007125 E78.00 Anxiety 84296518 F41.9 Gastroesop hageal reflux disease 197841896 K21.9 Health Concerns Section Related Observation LastModified by Organization Detai ls LastModified Time None Recorded Concern Status LastModified by Organization Details LastModified Time None Recorded Advance Directives Directive N: Patient declined informat ion. Payers Encounter Date Sequence Insurance Name Policy Number Policy Marquez Covered Member ID Marquez Member ID Guarantor Name 04/02/2023 1 [facility] - MEDICARE COMPLETE - CHOICE PLAN 2 (MEDICARE REPLACEMENT REGIONAL PPO) [id number] Analai Phillipshere [id number] Analia Phillipshere 08/13/2023 1 [facility] - MEDICARE COMPLETE - CHOICE PLAN 2 (MEDICARE REPLACEMENT REGIONAL PPO) [id number] Analia Phillipshere [id number] Analia Phillipshere 09/12/2023 1 [facility] - MEDICARE COMPLETE - CHOICE PLAN 2 (MEDICARE REPLACEMENT REGIONAL PPO) [id number] Analia Phillipshere [id number] Analia Phillipshere 09/17/2023 1 [facility] - MEDICARE COMPLETE - CHOICE PLAN 2 (MEDICARE REPLACEMENT REGIONAL PPO) [id number] Analia Phillipshere [id number] Analia Marques 11/28/2023 1 [facility] - MEDICARE COMPLETE - CHOICE PLAN 2 (MEDICARE REPLACEMENT REGIONAL PPO) [id number] Analia Phillipshere [id number] Analia Marques Notes Date Note Type Note Provider Name and Address Organization Details Recorded Time 04/02/2023 text/html neck pain stableanxiety increased her son is sick with cancerGERD stable Lori Soni MD [address], [place], [address], [employer] 04/03/2023 08:47:33 08/13/2023 text/html neck pain stableanxiety increased her son passed awayGERD stableHad a fall went to the ER she feels better Lori Soni MD [address], [place], [address], [employer] 08/13/2023 21:39:13 09/12/2023 text/html Doing some clean ing and now she has severe back pain did not hear a pop or anything like that no radicular symptoms no incontinence of bowel or bladder pain moderate to severe [id number] medicines no help bending and twisting makes it worse Lori Soni MD [address], [place], [address], [employer] 09/15/2023 11:28:38 09/17/2023 text/html Back to the emergency room because of pain lots of spasm no bowel or bladder incontinence she saw local chiropractor and she says that she will not go back to that individual just because of the treatment modality no fever no chills Lori Soni MD [address], [place], [address], [employer] 09/17/2023 20:44:25 11/28/2023 text/html She has been hav ing some vision issues has seen the eye doctor needs to follow up anxiety high since the loss of her son back doing a little bit better GERD is fine Lori Soni MD [address], [place], [address], [employer] 12/08/2023 15:44:31 OBGyn Episode No OBEpisode recorded.
--- OUTSIDE RECORDS SUMMARY | 2025-02-24 17:55 | XMS_ITS | Continuity of Care Document ---
Author Organization formerly [facility] Address [address] [place] [address] [address] [place] [address] Phone Care Team Providers Care Pile Driver Name Role Phone Aj Guzman Unavailable Unavailable Procedures Procedure Date Office/outpatient Visit, Est Eye Exam Established Pt Eye Exam & Treatment Refraction Office/outpatient Visit, New Advance Directives Directive Yes / No Effective Date File Name No Information Encounters Encounter Description Practice Location Reason(s) For Visit Diagnoses Date Provider Providers Copied on Encounter Office/outpat ient Visit, Est [facility], [address] [place] [address] [address], [place], [place], [id number], [place] tel:[phone] [facility] No Information 8 Megan Rocha. [address], [place], [place], [facility], . tel:[phone] [facility], [address] [place] [address] [address], [place], [place], [id number], [place] tel:[phone] [facility] No Information 1 8 Dannie Landis. [address] , [address], [place], [place], [facility], [place]. tel:[phone] [facility], [address], [place], [place], [id number], tel:[phone] [facility] No Information 3-200 [address] Oates OD Jarvis. [address] [facility] , [address], [place], [address], [place]. tel:[phone] Office/outpat ient Visit, [facility], [address], [place], [place], [id number], [place] tel:[phone] [facility] No Information [address] Jarvis. [address] [facility] , [address], [place], [address], [place]. tel:[phone] Family History Family Member Type Diagnosis Age At Onset No Information Payers Payer name Insurance type Covered democrat ID Authoriza tion(s) No Information Social History [...]
[2025-02-24] MEDS: KETOROLAC 30 MG/ML VIAL (*BKC) 10 MG IM (18:05)
[2025-02-24 18:11] VITALS: BP 150/70; PULSE 86; RESP 16; O2SAT 97
== END 2025-02-24 18:12 | disposition home or self-care (01) ==
PROVIDERS: Emergency Provider Emergency Medicine; PCP Internal Medicine
DX: S00.83XA Contusion of other part of head, initial encounter (principal); S80.02XA Contusion of left knee, initial encounter; S80.01XA Contusion of right knee, initial encounter; S60.222A Contusion of left hand, initial encounter; S60.221A Contusion of right hand, initial encounter; Z23 Encounter for immunization; Z79.899 Other long term (current) drug therapy; W18.09XA Striking against other object with subsequent fall, initial encounter
CPT/HCPCS: 70450; 70486; 71046; 71100; 71250; 72125; 73130; 73521; 73562; 73610; 90471; 90715; 96372; 99284; J1885